=== PATIENT | female | born 1960 | race African-American/Black ===

== ENCOUNTER 2016-03-06 14:15 | Emergency (ER) | payer OTHER ==
[2016-03-06 14:28] VITALS: BMI 30.8
[2016-03-06 15:23] VITALS: BP 141/100; PULSE 75; TEMP 98.8
[2016-03-06] MEDS ORDERED: KETOROLAC TROMETHAMINE 30 MG/1 ML VIAL IVPUSH ONE (15:32)
[2016-03-06] MEDS ORDERED: KETOROLAC TROMETHAMINE 30 MG/1 ML VIAL ONE (15:36)
--- NOTE | 2016-03-06 15:36 | PDOC ---
History of Present Illness - History of Present Illness Initial Comments: 03/06/16 15:36 The patient is a 56 year old female, with a significant past medical history of breast CA s/p right lumpectomy (2009, on Arimidex), hypertension, hyperlipidemia , SVT, who presents to the emergency department with dizziness and left flank pain for a few hours. She states she was cleaning her oven and developed a sudden onset of dizziness. She reports that when she stood up she continued to feel dizzy and had a sudden onset of left upper quadrant pain which radiates to her left upper flank. She denies shortness of breath, headache and dizziness. She denies fever, chills , nausea, vomit, diarrhea and constipation. She denies dysuria, frequency, urgency and hematuria. Past surgical history: partial hysterectomy, right mastectomy PCP - Dr. Aguayo Cylinder Loader: Dr. Calzada <Torri Riley - Last Filed: 03/06/16 17:23> <James Renteria - Last Filed: 03/06/16 18:56> - General Chief Complaint: Lightheaded Stated Complaint: DIZZLNESS Time Seen by Provider: 03/06/16 14:47 Past History <Torri Riley - Last Filed: 03/06/16 17:23> - Past Medical History Cancer: Yes (RT breast) HTN: Yes - Reproductive History Cervical CA: No Dysfunctional Uterine Bleeding: No Ectopic : No Endometrial CA: No Polycystic Ovaries: No Tubal Ligation: No - Immunization History Immunization Up to Date: Yes - Psycho/Social/Smoking Cessation Hx Anxiety: No Suicidal Ideation: No Smoking Status: Yes Smoking History: Former smoker Have you smoked in the past 12 months: No Number of Cigarettes Smoked Daily: 0 Cigars Per Day: 0 Information on smoking cessation initiated: No 'Breaking Loose' booklet given: 11/07/14 Hx Alcohol Use: No Drug/Substance Use Hx: No Substance Use Type: None, Marijuana Hx Substance Use Treatment: No <James Renteria - Last Filed: 03/06/16 18:56> - Past Medical History Allergies/Adverse Reactions: Allergies Allergy/AdvReac Type Severity Reaction Status Date / Time Sulfa (Sulfonamide Allergy Rash Verified 03/06/16 14:24 Antibiotics) Home Medications: Ambulatory Orders Anastrozole [Arimidex -] 1 mg PO DAILY 12/23/12 Calcium Carbonate/Vitamin D3 [Calcium 600 + Vit D 200 Tablet] 1 each PO DAILY Atorvastatin Ca [Lipitor] 20 mg PO HS 11/04/15 Verapamil HCl ER [Calan Sr] 180 mg PO HS 11/04/15 Losartan Potassium [Cozaar -] 50 mg PO HS 02/13/16 Metoprolol Succinate [Toprol XL -] 25 mg PO HS 02/13/16 Review of Systems - Review of Systems Able to Perform ROS?: Yes Comments:: 03/06/16 15:37 CONSTITUTIONAL: Absent: fever, chills, diaphoresis, generalized weakness, malaise, loss of appetite HEENT: Absent: rhinorrhea, nasal congestion, throat pain, throat swelling, difficulty swallowing, mouth swelling, ear pain, eye pain, visual Changes CARDIOVASCULAR: (+) chest tightness. Absent: syncope, palpitations, irregular heart rate, lightheadedness, peripheral edema RESPIRATORY: Absent: cough, shortness of breath, dyspnea with exertion, orthopnea, wheezing, stridor, hemoptysis GASTROINTESTINAL: (+) left upper quadrant pain. Absent: abdominal distension, nausea, vomiting, diarrhea, constipation, melena, hematochezia GENITOURINARY: (+) Left flank pain, Absent: dysuria, frequency, urgency, hesitancy, hematuria, genital pain MUSCULOSKELETAL: Absent: myalgia, arthralgia, joint swelling SKIN: Absent: rash, itching, pallor HEMATOLOGIC/IMMUNOLOGIC: Absent: easy bleeding, easy bruising, lymphadenopathy, frequent infections ENDOCRINE: Absent: unexplained weight gain, unexplained weight loss, heat intolerance, cold intolerance NEUROLOGIC: (+) dizziness, Absent: headache, focal weakness or paresthesias, unsteady gait, seizure, mental status changes, bladder or bowel incontinence PSYCHIATRIC: Absent: anxiety, depression, suicidal or homicidal ideation, hallucinations. <Torri Riley - Last Filed: 03/06/16 17:23> *Physical Exam - Vital Signs Last Vital Signs Temp Pulse Resp BP Pulse Ox 98.8 F 75 20 141/100 99 03/06/16 15:23 03/06/16 15:23 03/06/16 15:23 03/06/16 15:23 03/06/16 15:23 - Physical Exam Comments: 03/06/16 15:39 GENERAL: Well developed, well nourished. Awake and alert. No acute distress. HEENT: Normocephalic, atraumatic. PERRLA, EOMI. No conjunctival pallor. Sclera are non- icteric. Moist mucous membranes. Oropharynx is clear. NECK: Supple. Full ROM. No JVD. Carotid pulses 2+ and symmetric, without bruits. No thyromegaly. No lymphadenopathy. CARDIOVASCULAR: Regular rate and rhythm. No murmurs, rubs, or gallops. Distal pulses are 2+ and symmetric. PULMONARY: No evidence of respiratory distress. Lungs clear to auscultation bilaterally. No wheezing, rales or rhonchi. ABDOMINAL: (+) Mildly tender to the left upper flank. Soft. Non-distended. No rebound or guarding. No organomegaly. Normoactive bowel sounds. MUSCULOSKELETAL Normal range of motion at all joints. No bony deformities or tenderness. No CVA tenderness. EXTREMITIES: No cyanosis. No clubbing. No edema. No calf tenderness. SKIN: Warm and dry. Normal capillary refill. No rashes. No jaundice. NEUROLOGICAL: Alert, awake, appropriate. Cranial nerves 2-12 intact. Normoreflexic in the upper and lower extremities. Normal speech. Toes are down-going bilaterally. Gait is normal without ataxia. PSYCHIATRIC: Cooperative. Good eye contact. Appropriate mood and affect. <Torri Riley - Last Filed: 03/06/16 17:23> - Vital Signs Last Vital Signs Temp Pulse Resp BP Pulse Ox 98.8 F 75 20 141/100 99 03/06/16 15:23 03/06/16 15:23 03/06/16 15:23 03/06/16 15:23 03/06/16 15:23 <James Renteria - Last Filed: 03/06/16 18:56> ED Treatment Course - LABORATORY CBC & Chemistry Diagram: 03/06/16 15:35 03/06/16 15:35 <Torri Riley - Last Filed: 03/06/16 17:23> - LABORATORY CBC & Chemistry Diagram: 03/06/16 15:35 03/06/16 15:35 <James Renteria - Last Filed: 03/06/16 18:56> *DC/Admit/Observation/Transfer - Attestations Scribe Attestion: 03/06/16 15:40 Documentation prepared by Torri Riley, acting as medical records specialist for James Renteria MD, MD <Torri Riley - Last Filed: 03/06/16 17:23> - Discharge Dispostion Admit: No <James Renteria - Last Filed: 03/06/16 18:56> Diagnosis at time of Disposition: Gastritis, Atypical chest pain - Discharge Dispostion Disposition: HOME Condition at time of disposition: Good - Referrals Referrals: Arturo Aguayo [Primary Care Provider] -
[2016-03-06 15:42] LABS: BASOPHIL 0.3 % (0-2.0); EOSINOPHIL 1.2 % (0-4.5); MEAN CELL VOLUME 87.6 fl (80-96); MEAN PLT VOLUME 9.3 fl (7.5-11.1); NEUTROPHILS 59.8 % (42.8-82.8); PLATELET COUNT 273 K/MM3 (134-434); RDW 15.8 % (11.6-15.6); WHITE BLOOD COUNT 8.3 K/mm3 (4.0-10.0)
[2016-03-06 15:49] LABS: URINE APPEARANCE CLEAR; URINE BILIRUBIN NEGATIVE (NEGATIVE); URINE BLOOD NEGATIVE (NEGATIVE); URINE COLOR STRAW; URINE GLUCOSE (UA) NEGATIVE (NEGATIVE); URINE KETONE NEGATIVE (NEGATIVE); URINE LEUK ESTERASE NEGATIVE (NEGATIVE); URINE NITRITE NEGATIVE (NEGATIVE); URINE PROTEIN NEGATIVE (NEGATIVE); URINE UROBILINOGEN NEGATIVE E.U./dl (0.2-1.0)
[2016-03-06 16:01] LABS: ALK PHOS 85 U/L (45-117); ANION GAP 5 (8-16); BILIRUBIN,TOTAL 0.6 mg/dL (0.2-1.0); CALCIUM 9.9 mg/dL (8.5-10.1); CO2 31 mmol/L (21-32); CREATININE 0.9 mg/dL (0.55-1.02); GLUCOSE,RANDOM 81 mg/dL (74-106); SGOT/AST 23 U/L (15-37); SGPT/ALT 31 U/L (12-78); TOT PROT 7.1 g/dl (6.4-8.2)
--- NOTE | 2016-03-06 16:04 | EKG ---
Test Reason : Blood Pressure : / mmHG Vent. Rate : 061 BPM Atrial Rate : 061 BPM P-R Int : 138 ms QRS Dur : 072 ms QT Int : 414 ms P-R-T Axes : 045 034 080 degrees QTc Int : 416 ms NORMAL SINUS RHYTHM NORMAL ECG WHEN COMPARED WITH ECG OF 13-FEB-2016 13:47, NO SIGNIFICANT CHANGE WAS FOUND Confirmed by CHRISTEL MCMULLEN MD ([id number]) on 03/06/2016 4:03:56 PM Referred By: Confirmed By:CHRISTEL MCMULLEN MD
[2016-03-06] MEDS ORDERED: MAG HYDROX/AL HYDROX/SIMETH 30 ML UNIT-DOSE CUP PO ONE (17:30)
[2016-03-06] MEDS ORDERED: DICYCLOMINE HCL 10 MG CAPSULE PO ONE (17:30)
[2016-03-06] MEDS ORDERED: LIDOCAINE VISCOUS 2% ORAL/TOP 20 ML UNIT-DOSE CUP MM ONE (17:30)
[2016-03-06] MEDS ORDERED: MAG HYDROX/AL HYDROX/SIMETH 30 ML UNIT-DOSE CUP ONE (17:40)
[2016-03-06] MEDS ORDERED: DICYCLOMINE HCL 10 MG CAPSULE ONE (17:40)
== END 2016-03-06 20:38 | disposition home or self-care (01) ==
LOC: JERFT 14:15 → JER 14:15
DX: K29.70 Gastritis, unspecified, without bleeding (principal); R07.89 Other chest pain; I10 Essential (primary) hypertension; E78.00 Pure hypercholesterolemia, unspecified; Z85.3 Personal history of malignant neoplasm of breast
CPT/HCPCS: 36415; 76700-TC; 80053; 81003; 85025; 93005; 93010; 99283-25

== ENCOUNTER 2016-06-22 20:21 | Emergency (ER) | payer OTHER ==
[2016-06-22 20:47] VITALS: BMI 31.3
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
[2016-06-22 21:17] LABS: URINE APPEARANCE CLEAR; URINE BILIRUBIN NEGATIVE (NEGATIVE); URINE COLOR YELLOW; URINE GLUCOSE (UA) NEGATIVE (NEGATIVE); URINE KETONE NEGATIVE (NEGATIVE); URINE LEUK ESTERASE NEGATIVE (NEGATIVE); URINE NITRITE NEGATIVE (NEGATIVE); URINE PROTEIN NEGATIVE (NEGATIVE); URINE UROBILINOGEN NEGATIVE E.U./dl (0.2-1.0)
[2016-06-22 21:18] LABS: URINE BLOOD 1+ (NEGATIVE)
[2016-06-22 21:21] LABS: URINE MUCUS RARE; URINE RBC 3 /hpf (0-3); URINE WBC 1 /hpf (3-5)
[2016-06-22] MEDS ORDERED: morphine CARPU-JECT 4 MG/1 ML DISP.SYRIN IVPUSH ONE (21:39)
[2016-06-22] MEDS ORDERED: ONDANSETRON 4 MG/2 ML VIAL IVPUSH ONE (21:39)
[2016-06-22] MEDS ORDERED: ONDANSETRON 4 MG/2 ML VIAL ONE (22:16)
[2016-06-22] MEDS ORDERED: morphine CARPU-JECT 4 MG/1 ML DISP.SYRIN ONE (22:16)
[2016-06-22 22:29] LABS: BASOPHIL 0.6 % (0-2.0); EOSINOPHIL 1.4 % (0-4.5); MCH 27.9 pg (25.7-33.7); MCHC 31.5 g/dl (32.0-36.0); MEAN CELL VOLUME 88.6 fl (80-96); MEAN PLT VOLUME 9.5 fl (7.5-11.1); NEUTROPHILS 57.9 % (42.8-82.8); PLATELET COUNT 276 K/MM3 (134-434); WHITE BLOOD COUNT 8.5 K/mm3 (4.0-10.0)
--- NOTE | 2016-06-22 22:41 | PDOC ---
[id number]/113 98 06/22/16 20:41 06/22/16 20:41 06/22/16 20:41 06/22/16 20:41 06/22/16 20:41 - Physical Exam Comments: 06/22/16 22:41 The patient was examined by [CUSTOMER SUPPORT ENGINEER Isamar] under my direct supervision. I personally evaluated the patient. I concur with the above findings and the plan of care. ED Treatment Course - LABORATORY CBC & Chemistry Diagram: 06/22/16 22:14 06/22/16 22:14 - ADDITIONAL ORDERS Additional order review: Laboratory Results 06/22/16 20:45 Urine Color Yellow Urine Appearance Clear Urine pH 5.0 D Urine Protein Negative Urine Glucose (UA) Negative Urine Ketones Negative Urine Blood 1+ H Urine Nitrite Negative Urine Bilirubin Negative Urine Urobilinogen Negative Ur Leukocyte Esterase Negative Urine RBC 3 Urine WBC 1 Ur Epithelial Cells Rare Urine Mucus Rare 06/22/16 22:14 RBC 4.48 MCV 88.6 MCHC 31.5 L RDW 16.0 H MPV 9.5 Neutrophils % 57.9 Lymphocytes % 34.6 Monocytes % 5.5 Eosinophils % 1.4 Basophils % 0.6 - Medications Given in the ED: ED Medications Discontinued Medications Generic Name Dose Route Start Last Admin Trade Name Freq PRN Reason Stop Dose Admin Morphine Sulfate 4 mg 06/22/16 21:39 06/22/16 22:16 Morphine Injection - IVPUSH 06/22/16 21:40 4 mg ONCE ONE Administration Ondansetron HCl 4 mg 06/22/16 21:39 06/22/16 22:16 Zofran Injection IVPUSH 06/22/16 21:40 4 mg ONCE ONE Administration *DC/Admit/Observation/Transfer Diagnosis at time of Disposition: Lung nodule < 6cm on CT, Ovarian cyst, left, Ventral hernia without obstruction or gangrene, Fecal impaction of colon - Discharge Dispostion Disposition: HOME - Referrals Referrals: Greyson Mayfield MD [Staff Physician] - Arturo Aguayo [Primary Care Provider] - Lynn Conley MD [Staff Physician] - - Patient Instructions Printed Discharge Instructions: DI for Ovarian Cyst, DI for Ventral Hernia, DI for Fecal Impaction Additional Instructions: As per hour in depth conversation, you will need to follow-up with: General surgeon (Dr. Bobby Mayfield) Land Measurer (Dr. Conley) Your own primary care physician You had a CAT scan of your abdomen and your pelvis with contrast by mouth and intravenously this evening. This is only a preliminary report as per our discussion. There is an incidental finding of a 4 mm right lower lobe nodule. 3.7 cm mildly complex left ovarian cyst Moderate stool in your colon Return back to the emergency department for severe/persistent or worsening symptoms.
[2016-06-22 23:02] LABS: ALBUMIN 3.8 g/dl (3.4-5.0); BILIRUBIN,TOTAL 0.3 mg/dL (0.2-1.0); CALCIUM 9.9 mg/dL (8.5-10.1); COCKROFT - GAULT 80.8095; CREATININE 1.1 mg/dL (0.55-1.02); TOT PROT 7.1 g/dl (6.4-8.2)
[2016-06-23] MEDS ORDERED: morphine CARPU-JECT 2 MG/1 ML DISP.SYRIN IVPUSH ONE (00:34)
[2016-06-23] MEDS ORDERED: morphine CARPU-JECT 4 MG/1 ML DISP.SYRIN ONE (00:58)
--- NOTE | 2016-06-23 03:11 | PDOC ---
*Physical Exam - Vital Signs Last Vital Signs Temp Pulse Resp BP Pulse Ox 98.2 F 83 20 162/113 98 06/22/16 20:41 06/22/16 20:41 06/22/16 20:41 06/22/16 20:41 06/22/16 20:41 ED Treatment Course - LABORATORY CBC & Chemistry Diagram: 06/22/16 22:14 06/22/16 22:14 - ADDITIONAL ORDERS Additional order review: Laboratory Results 06/22/16 06/22/16 22:14 20:45 Sodium 142 Potassium 4.1 Chloride 104 Carbon Dioxide 29 Anion Gap 9 BUN 19 H D Creatinine 1.1 H D Creat Clearance w eGFR 51.20 Random Glucose 110 H D Calcium 9.9 Total Bilirubin 0.3 D AST 32 D ALT 38 D Alkaline Phosphatase 86 Total Protein 7.1 Albumin 3.8 Lipase 92 Urine Color Yellow Urine Appearance Clear Urine pH 5.0 D Urine Protein Negative Urine Glucose (UA) Negative Urine Ketones Negative Urine Blood 1+ H Urine Nitrite Negative Urine Bilirubin Negative Urine Urobilinogen Negative Ur Leukocyte Esterase Negative Urine RBC 3 Urine WBC 1 Ur Epithelial Cells Rare Urine Mucus Rare 06/22/16 22:14 RBC 4.48 MCV 88.6 MCHC 31.5 L RDW 16.0 H MPV 9.5 Neutrophils % 57.9 Lymphocytes % 34.6 Monocytes % 5.5 Eosinophils % 1.4 Basophils % 0.6 - Medications Given in the ED: ED Medications Discontinued Medications Generic Name Dose Route Start Last Admin Trade Name Freq PRN Reason Stop Dose Admin Morphine Sulfate 4 mg 06/22/16 21:39 06/22/16 22:16 Morphine Injection - IVPUSH 06/22/16 21:40 4 mg ONCE ONE Administration Morphine Sulfate 4 mg 06/23/16 00:34 06/23/16 01:04 Morphine Injection - IVPUSH 06/23/16 00:35 4 mg ONCE ONE Administration Ondansetron HCl 4 mg 06/22/16 21:39 06/22/16 22:16 Zofran Injection IVPUSH 06/22/16 21:40 4 mg ONCE ONE Administration Progress Note - Progress Note Progress Note: 0005hrs: Pt is pain free/sleeping on the stretcher. GENERAL: Well developed, well nourished. Awake and alert. No acute distress. HEENT: Normocephalic, atraumatic. PERRLA, EOMI. No conjunctival pallor. Sclera are non- icteric. Moist mucous membranes. Oropharynx is clear. NECK: Supple. Full ROM. No JVD. Carotid pulses 2+ and symmetric, without bruits. No thyromegaly. No lymphadenopathy. CARDIOVASCULAR: Regular rate and rhythm. No murmurs, rubs, or gallops. Distal pulses are 2+ and symmetric. PULMONARY: No evidence of respiratory distress. Lungs clear to auscultation bilaterally. No wheezing, rales or rhonchi. ABDOMINAL: Right pelvic pain on deep palp Soft. Non-distended. No rebound or guarding. No organomegaly. Normoactive bowel sounds. MUSCULOSKELETAL Normal range of motion at all joints. No bony deformities or tenderness. No CVA tenderness. EXTREMITIES: No cyanosis. No clubbing. No edema. No calf tenderness. SKIN: Warm and dry. Normal capillary refill. No rashes. No jaundice. NEUROLOGICAL: Alert, awake, appropriate. Cranial nerves 2-12 intact. No deficits to light touch and temperature in face, upper extremities and lower extremities. No motor deficits in the in face, upper extremities and lower extremities. Normoreflexic in the upper and lower extremities. Normal speech. Toes are down- going bilaterally. Gait is normal without ataxia. PSYCHIATRIC: Cooperative. Good eye contact. Appropriate mood and affect. Pt refuses pelvic exam Interpreting the patient's CAT scan results, the patient insists that I tell her different. Patient insists that I tell her her CAT scan results are normal. I explained to the patient that I can only tell her exactly what the preliminary report says but the patient got upset saying that she doesn't want here anything but normal. *DC/Admit/Observation/Transfer Diagnosis at time of Disposition: Lung nodule < 6cm on CT, Ovarian cyst, left, Ventral hernia without obstruction or gangrene, Fecal impaction of colon - Discharge Dispostion Admit: No - Referrals Referrals: Arturo Aguayo [Primary Care Provider] - Greyson Mayfield MD [Staff Physician] - Lynn Conley MD [Staff Physician] - - Patient Instructions Printed Discharge Instructions: DI for Ovarian Cyst, DI for Fecal Impaction, DI for Ventral Hernia Additional Instructions: As per hour in depth conversation, you will need to follow-up with: General surgeon (Dr. Bobby Mayfield) Small Business Sales Representative (Dr. Conley) Your own primary care physician You had a CAT scan of your abdomen and your pelvis with contrast by mouth and intravenously this evening. This is only a preliminary report as per our discussion. There is an incidental finding of a 4 mm right lower lobe nodule. 3.7 cm mildly complex left ovarian cyst Moderate stool in your colon Return back to the emergency department for severe/persistent or worsening symptoms.
[2016-06-23 05:29] VITALS: BP 141/76; PULSE 61; TEMP 98
== END 2016-06-23 05:30 | disposition home or self-care (01) ==
LOC: JER 20:21
PROC: 3E033NZ Introduction of Analgesics, Hypnotics, Sedatives into Peripheral Vein, Percutaneous Approach (ICD-10-PCS; principal; 2016-06-22)
PROC: 3E033GC Introduction of Other Therapeutic Substance into Peripheral Vein, Percutaneous Approach (ICD-10-PCS; 2016-06-22)
PROC: 3E033NZ Introduction of Analgesics, Hypnotics, Sedatives into Peripheral Vein, Percutaneous Approach (ICD-10-PCS; 2016-06-22)
DX: N83.202 Unspecified ovarian cyst, left side (principal); K59.09 Other constipation; R91.1 Solitary pulmonary nodule; I10 Essential (primary) hypertension; Z85.3 Personal history of malignant neoplasm of breast
CPT/HCPCS: 36415; 74177-TC; 80053; 81003; 81015; 83690; 85025; 96374; 96375; 99282-25

== ENCOUNTER 2016-07-30 09:54 | Day surgery (SDC) | payer OTHER ==
[2016-07-27 10:39] VITALS: BMI 31.9
[2016-07-30] MEDS ORDERED: MIDAZOLAM HCL 2 MG/2 ML SINGLE DOSE VIAL ONE ×2 (12:20)
[2016-07-30] MEDS ORDERED: DESFLURANE GAS 240 ML BOTTLE IH ONE (12:45)
[2016-07-30] MEDS ORDERED: BUPIVACAINE HCL/PF 0.5% (5MG/ML) 10 ML VIAL ONE (12:47)
[2016-07-30] MEDS ORDERED: LIDOCAINE HCL 1%, 10 MG/ML (20ML VIAL) ONE (12:47)
[2016-07-30] MEDS ORDERED: BUPIVACAINE HCL/PF 0.5% (5MG/ML) 10 ML VIAL IJ ONE (12:48)
[2016-07-30] MEDS ORDERED: LIDOCAINE HCL 1%, 10 MG/ML (50 mL VIAL) IJ ONE (12:48)
[2016-07-30] MEDS ORDERED: NEOSTIGMINE METHYLSULFATE 0.5 MG/ML - 10 ML MDV ONE (13:29)
--- NOTE | 2016-07-30 13:34 | OP ---
Operative Note - Note: Operative Date: 07/30/16 Pre-Operative Diagnosis: Incarcerated ventral hernia Operation: Open repair and primary closure of incarcerated ventral hernia Post-Operative Diagnosis: Same as Pre-op Surgeon: Greyson Mayfield Medical Biller: Beltran Cisneros Anesthesiologist/[employer] TRUCK DRIVER: Delfino Lo Anesthesia: General Specimens Removed: hernia sac Estimated Blood Loss (mls): 10 Fluid Volume Replaced (mls): 900 Operative Report Dictated: Yes
--- NOTE | 2016-07-30 13:35 | HP ---
History & Physical Update - History History: No Change - Physical Physical: No Change - Assessment Assessment: No Change - Plan Plan: No Change (This is the first time I'm meeting the patient. I informed her that I will be assisting Dr. Mayfield for the case today. She is fine with it.)
[2016-07-30] MEDS ORDERED: ACETAMINOPHEN 1000 MG/100 ML VIAL (NON FORMULARY) IVPB ONE (13:36)
--- NOTE | 2016-07-30 13:36 | SURG ---
Surgery Woods Superintendent Note Woods Superintendent: Beltran Cisneros PA-C Date of Service: 07/30/16 Diagnosis: Incarcerated ventral hernia Procedure: Open repair incarcerated ventral hernia, primary closure. Defect 1.5 x 1.5 cm I was present for the entirety of the operative procedure. For further detail, please refer to operative report. Visit type - Case Type Case Type: Scheduled Admission - New patient This patient is new to me today: Yes Date on this admission: 07/30/16
[2016-07-30] MEDS ORDERED: ONDANSETRON 4 MG/2 ML VIAL IVPUSH PRN (14:01)
[2016-07-30] MEDS ORDERED: oxyCODONE HCL 5 MG TABLET PO PRN (14:01)
[2016-07-30] MEDS ORDERED: PROMETHAZINE HCL 25 MG/1 ML VIAL IVPUSH PRN (14:01)
[2016-07-30] MEDS ORDERED: LACTATED RINGERS SOLUTION 1,000 ML IV SCH (14:15)
[2016-07-30] MEDS ORDERED: ACETAMINOPHEN INJECTION 100 ML IVPB ONE (14:55)
[2016-07-30 15:58] VITALS: TEMP 98
[2016-07-30] MEDS ORDERED: ONDANSETRON 4 MG/2 ML VIAL ONE (17:27)
[2016-07-30 19:07] VITALS: BP 123/78; PULSE 80
--- NOTE | 2016-08-01 07:16 | OP ---
DATE OF OPERATION: 07/30/2016 PREOPERATIVE DIAGNOSIS: Incarcerated ventral hernia. POSTOPERATIVE DIAGNOSIS: Incarcerated ventral hernia. PROCEDURE: Repair of incarcerated ventral hernia. SURGEON: Greyson Mayfield MD REED PRESS FEEDER: Beltran Cisneros PA-C ANESTHESIA: General. OPERATIVE FINDINGS: There was an incarcerated ventral hernia several centimeters above the umbilicus. It contained incarcerated preperitoneal fat. The defect at the abdominal wall was approximately 1.5 cm in greatest dimension. The rest of the findings were unremarkable. DESCRIPTION OF PROCEDURE: The patient was placed on the operating table in supine position, and after the induction of general anesthesia, the patients abdomen was prepped with ChloraPrep and draped in sterile fashion. A time-out was taken, and a vertical incision made over the incarcerated hernia. This was taken down through skin and subcutaneous tissue until the hernia sac was identified. It was bluntly dissected from the surrounding tissue, and the defect in the abdominal wall identified. The hernia sac was opened and all incarcerated preperitoneal fat was excised with the sac and sent for pathological examination. The undersurface of the abdominal wall was cleared using blunt dissection, and then, the hernia repaired with multiple 0 Prolene horizontal mattress sutures. Then, 1% Xylocaine and 0.5% Marcaine local anesthesia was infiltrated into the operative field, and the wound irrigated with sterile saline. Hemostasis was secured with electrocautery, and then, the incision closed in layers with interrupted 2-0 Vicryl to close the deep layer over the hernia defect, interrupted 3-0 Vicryl for the deep dermis, and 4-0 Biosyn in a subcuticular continuous fashion to reapproximate the skin edges. Steri-Strips, fluffs, and dry sterile dressings were placed, and the procedure terminated at this point, and the patient roused from general anesthesia and transferred to the post-anesthesia care unit in stable condition, awake and alert. ESTIMATED BLOOD LOSS: Minimal. DRAINS: None. SPECIMENS: Hernia sac and incarcerated preperitoneal fat to Pathology. I, Greyson Mayfield, was physically present in the operating room from the time the patient was placed on the operating table until she was transferred to the post-anesthesia care unit in my accompaniment. MD HUGO Reed/[id number]
--- NOTE | 2016-08-01 14:37 | PATH ---
Surgical Pathology Report Patient Name: PETE MORA [facility]. Rec. #: [id number] /Age/Gender: 1960 (Age: 56) / F Account: [id number] Location: [facility] SURGICAL Taken: 07/30/2016 Received: 07/31/2016 Reported: 08/01/2016 Physicians: Greyson Mayfield MD Specimen(s) Received HERNIA SAC Clinical History Incarcerated ventral hernia Final Diagnosis HERNIA SAC, INCARCERATED VENTRAL HERNIA REPAIR: BENIGN, FOCALLY MESOTHELIUM LINED, FIBROMEMBRANOUS AND FIBROFATTY TISSUE, CONSISTENT WITH HERNIA SAC. Electronically Signed Reji Lou M.D. Gross Description Received in formalin labeled "hernia sac" is a 7.4 x 6.0 x 3.0 cm aggregate of hurley brandon fibromembranous tissue with attached yellow, lobulated adipose tissue, consistent with a hernia sac. Hooker Machine Tender sections are submitted in one cassette. /07/31/2016 saudi07/31/2016
== END 2016-07-30 19:09 | disposition home or self-care (01) ==
LOC: JASU-SURG 09:54
PROVIDERS: ATTEND Surgery
PROC: 0WQF0ZZ Repair Abdominal Wall, Open Approach (ICD-10-PCS; principal; 2016-07-30 13:00)
DX: K43.6 Other and unspecified ventral hernia with obstruction, without gangrene (principal)
CPT/HCPCS: 88302-TC; 94760

== ENCOUNTER → 2017-01-22 | Day surgery (SDC) | payer OTHER ==
--- NOTE | 2017-01-24 09:54 | PATH ---
Cytology Non-Gynecological Report Patient Name: PETE MORA [facility]. Rec. #: [id number] /Age/Gender: 1960 (Age: 56) / F Account: [id number] Location: RADIOLOGY Taken: 01/22/2017 Received: 01/22/2017 Reported: 01/24/2017 Physicians: Peggy Valentino Specimen(s) Received LEFT THYROID FNA Clinical History Left thyroid nodule 1.61 x 1.52 x 1.48 cm Final Diagnosis THYROID, LEFT, FINE NEEDLE ASPIRATION: SATISFACTORY FOR EVALUATION. BETHESDA II: SUGGESTIVE OF BENIGN FOLLICULAR NODULE. FEW FOLLICULAR CELLS WITH REACTIVE CHANGES IN A BACKGROUND OF MACROPHAGES, MICROCALCIFICATIONS AND COLLOID. RARE SKELETAL MUSCLE NOTED. Comment: Follicular component of the specimen is limited, but available material is suggestive of a benign process, if manufacturer representative. If the nodule has worrisome ultrasound imaging properties, suggest repeat FNA, as clinically warranted. Electronically Signed Lindsey Ortiz M.D. Gross Description Received are eight direct smears, four of which are air-dried and Diff-Quik stained, and four of which are alcohol fixed and Pap stained. Also received is 20 ml of bloody formalin from which one cellblock is prepared.
== END | disposition home or self-care (01) ==
LOC: JRADIR 08:15
PROVIDERS: ATTEND Legal Medicine
PROC: 0GBG3ZX Excision of Left Thyroid Gland Lobe, Percutaneous Approach, Diagnostic (ICD-10-PCS; principal; 2017-01-22)
PROC: BG44ZZZ Ultrasonography of Thyroid Gland (ICD-10-PCS; 2017-01-22)
DX: E04.1 Nontoxic single thyroid nodule (principal)
CPT/HCPCS: 60100; 76942; 88173; 88305-TC

== ENCOUNTER 2017-05-25 18:44 | Emergency (ER) | payer OTHER ==
[2017-05-25 18:57] VITALS: TEMP 98.1; BMI 35.2
--- NOTE | 2017-05-25 19:49 | PDOC ---
History of Present Illness <Debbie Mayo - Last Filed: 05/26/17 00:55> - General History Source: Patient - History of Present Illness Initial Comments: 05/25/17 19:50 57 year old female with a PMH of Lung CA (s/p resection) Breast CA (s/p lumpectomy), SVT, HTN, HLD presents to ED c/o acute onset of lightheadedness. Patient states she was sitting on a chair when she suddenly felt lightheaded. Patient denies any associated dyspnea, chest pain, nausea/vomiting. C/o two day history of R sided temporal headache with associated blurry vision that resolved yesterday. Notes last bowel movement was today prior to presentation. Last PO intake was yesterday. Notes recent consumption of Hemo Him supplement with the hope of increasing energy. Patient denies any fever/chills, nausea/vomiting, diarrhea/constipation, abdominal cramping, chest pain, shortness of breath, dysuria/hematuria. Allergy: Sulfa Social: denies current nicotine use (previous 1 ppd), denies alcohol, denies recreational drugs. <Gabriella Drake - Last Filed: 05/26/17 05:20> - General Chief Complaint: Lightheaded Stated Complaint: DIZZYNESS, ELEVATED BLOOD PRESSURE Time Seen by Provider: 05/25/17 19:22 Past History <Debbie Mayo - Last Filed: 05/26/17 00:55> - Past Medical History Cancer: Yes (RT breast) COPD: No HTN: Yes Thyroid Disease: No - Surgical History Abdominal Surgery: Yes - Reproductive History Cervical CA: No Dysfunctional Uterine Bleeding: No Ectopic : No Endometrial CA: No Polycystic Ovaries: No Tubal Ligation: No - Immunization History Immunization Up to Date: Yes - Suicide/Smoking/Psychosocial Hx Smoking Status: Yes Smoking History: Never smoked Have you smoked in the past 12 months: No Number of Cigarettes Smoked Daily: 0 If you are a former smoker, when did you quit?: SIX MONTHS AGO Cigars Per Day: 0 'Breaking Loose' booklet given: 07/30/16 Hx Alcohol Use: No Drug/Substance Use Hx: No Substance Use Type: None Hx Substance Use Treatment: No <Gabriella Drake - Last Filed: 05/26/17 05:20> - Past Medical History Allergies/Adverse Reactions: Allergies Allergy/AdvReac Type Severity Reaction Status Date / Time Sulfa (Sulfonamide Allergy Rash Verified 05/25/17 18:49 Antibiotics) Home Medications: Ambulatory Orders Anastrozole [Arimidex -] 1 mg PO DAILY 02/10/12 Atorvastatin Ca [Lipitor] 20 mg PO DAILY 11/04/15 Verapamil HCl ER [Calan Sr] 180 mg PO DAILY 11/04/15 Losartan Potassium [Cozaar -] 50 mg PO HS 02/13/16 Metoprolol Succinate [Toprol XL -] 25 mg PO HS 02/13/16 Citalopram Hydrobromide [Citalopram HBr] 20 mg PO DAILY 07/30/16 Oxycodone HCl/Acetaminophen [Percocet 5-325 mg Tablet] 1 tab PO Q4H #20 tablet MDD 6 07/30/16 Temazepam 7.5 mg PO PRN PRN 07/30/16 Review of Systems - Review of Systems Constitutional: No: Chills, Fever HEENTM: No: Recent change in vision Respiratory: No: Shortness of Breath, Wheezing Cardiac (ROS): Yes: Lightheadedness. No: Chest Pain, Palpitations, Syncope ABD/GI: No: Constipated, Diarrhea, Nausea, Vomiting : No: Burning, Dysuria <Gabriella Drake - Last Filed: 05/26/17 05:20> *Physical Exam - Vital Signs Last Vital Signs Temp Pulse Resp BP Pulse Ox 98.1 F 62 18 158/92 98 05/25/17 18:49 05/25/17 23:43 05/25/17 23:43 05/25/17 23:43 05/25/17 23:43 <Debbie Mayo - Last Filed: 05/26/17 00:55> - Vital Signs Last Vital Signs Temp Pulse Resp BP Pulse Ox 98.1 F 72 16 178/94 100 05/25/17 18:49 05/25/17 18:49 05/25/17 18:49 05/25/17 18:49 05/25/17 18:49 - Physical Exam Comments: 05/25/17 21:04 GENERAL: Awake, alert, and fully oriented, in no acute distress HEAD: No signs of trauma EYES: PERRLA, EOMI, sclera anicteric, conjunctiva clear ENT: Auricles normal inspection, hearing grossly normal, nares patent, oropharynx clear without exudates. Moist mucosa NECK: Nontender, no stepoffs, Normal ROM, supple, no lymphadenopathy, JVD, or masses LUNGS: Breath sounds equal, clear to auscultation bilaterally. No wheezes, and no crackles HEART: Regular rate and rhythm, normal S1 and S2, no murmurs, rubs or gallops ABDOMEN: Soft, nontender, normoactive bowel sounds. No guarding, no rebound. No masses EXTREMITIES: Normal range of motion, no edema. No clubbing or cyanosis. No cords, erythema, or tenderness NEUROLOGICAL: Cranial nerves II through XII intact. 5/5 strength and sensation in all extremities, Normal speech, normal cerebellar function SKIN: Warm, Dry, normal turgor, no rashes or lesions noted. <Gabriella Drake - Last Filed: 05/26/17 05:20> ED Treatment Course - LABORATORY CBC & Chemistry Diagram: 05/25/17 20:31 05/25/17 20:31 - ADDITIONAL ORDERS Additional order review: Laboratory Results 05/25/17 05/25/17 23:44 20:31 Sodium 139 Potassium 4.3 Chloride 103 Carbon Dioxide 30 Anion Gap 6 L BUN 14 Creatinine 0.9 Creat Clearance w eGFR > 60 Random Glucose 89 Calcium 9.7 Total Bilirubin 0.5 D AST 29 ALT 31 Alkaline Phosphatase 87 Creatine Kinase 461 H 527 H Creatine Kinase Index 1.0 1.0 CK-MB (CK-2) 5.063 H 5.594 H Troponin I < 0.02 < 0.02 B-Natriuretic Peptide 141.80 H Total Protein 7.3 Albumin 3.8 05/25/17 20:31 RBC 4.38 MCV 87.7 MCHC 32.8 RDW 16.2 H MPV 9.4 Neutrophils % 60.7 Lymphocytes % 30.1 Monocytes % 6.5 Eosinophils % 1.7 Basophils % 1.0 - Medications Given in the ED: ED Medications Discontinued Medications Generic Name Dose Route Start Last Admin Trade Name Freq PRN Reason Stop Dose Admin Aspirin 162 mg 05/25/17 23:55 05/26/17 00:01 Asa - PO 05/25/17 23:56 162 mg ONCE ONE Administration Metoprolol Succinate 25 mg 05/25/17 20:29 05/25/17 21:02 Toprol Xl - PO 05/25/17 20:30 25 mg ONCE ONE Administration Sodium Chloride 1,000 ml 05/25/17 20:07 05/25/17 20:30 Normal Saline - IV 05/25/17 20:08 1,000 ml ONCE ONE Administration <Debbie Mayo - Last Filed: 05/26/17 00:55> - LABORATORY CBC & Chemistry Diagram: 05/25/17 20:31 05/25/17 20:31 <Gabriella Drake - Last Filed: 05/26/17 05:20> Medical Decision Making - Medical Decision Making 05/25/17 20:52 57 year old female presents with acute onset of lightheadness- neurologically intact, NIHSS Stroke Scale 0. Hypertensive (SBP 170's) @ presentation. DDx includes TIA, r/o ACS, Giant Cell Arteritis, Electrolyte derangement. Will obtain CT head, ESR + basic labs + Troponin, administer IV NS. 05/25/17 21:04 As patient has not taken anti-hypertensive, will give OTD of Metoprolol. Troponin (-) x1. 05/25/17 21:06 ECG shows SR with occasional PVC's, not c/w previous ECG. Given patient's age, race, body habitus -- will obtain second Troponin to r/o acute coronary event. 05/25/17 22:45 Repeat BP 158/92 05/25/17 23:[address] negative for acute bleed/ischemia. 05/25/17 23:55 Repeat Troponin (-). At this time, patient observed for 3+ hours with complete resolution of symptoms. Low clinical suspicion for acute cardiac event. Will discharge home with return precautions and PMD follow-up. I discussed the physical exam findings, ancillary test results and final diagnoses with the patient. I answered all of the patient's questions. The patient was satisfied with the care received and felt comfortable with the discharge plan and treatment plan. The patient will return to the Emergency Department with any new, persistent or worsening symptoms. <Gabriella Drake - Last Filed: 05/26/17 05:20> *DC/Admit/Observation/Transfer - Discharge Dispostion Admit: No <Debbie Mayo - Last Filed: 05/26/17 00:55> <Gabriella Drake - Last Filed: 05/26/17 05:20> Diagnosis at time of Disposition: Atypical chest pain, Dizziness - Discharge Dispostion Disposition: HOME Condition at time of disposition: Improved - Referrals Referrals: Arturo Aguayo [Primary Care Provider] - - Patient Instructions Printed Discharge Instructions: Preventive Cardiology: Aspirin, Dizziness, Nonvertigo Additional Instructions: Please return to the Emergency Department for any new/worsening/concerning symptoms. Follow up with your primary care doctor in the next 48 hours. - Post Discharge Activity Forms/Work/School Notes: Back to Work
[2017-05-25] MEDS ORDERED: SODIUM CHLORIDE 0.9% 500 ML INFUS.BAG IV ONE (20:07)
--- NOTE | 2017-05-25 20:14 | PDOC ---
Attending Attestation - Resident Resident Name: Otf Drakeica - ED Attending Attestation I have performed the following: I have examined & evaluated the patient, The case was reviewed & discussed with the resident, I agree w/resident's findings & plan - HPI HPI: 05/25/17 23:43 Pt comes with lightheadedness; she reports that she had an episode of visual deficits in the recent past. Pt was exhausted today after spending the day with her two young grandchildren. Pt NSR with few PVCs. Pt has normal labs; slightly bumped CK; we will get a 2nd cardiac profile. CXR normal and head CT normal. - Physicial Exam PE: 05/26/17 00:45 Agree with resident exam - Medical Decision Making 05/26/17 00:46 Pt's 2nd cardiac enzyme is trending lower. She is stable for discharge home.
[2017-05-25] MEDS ORDERED: metoPROLOL SUCCINATE 25 MG TAB.SR.24H (FP) PO ONE (20:29)
[2017-05-25 20:39] LABS: EOS % 1.7 % (0-4.5); HEMATOCRIT 38.5 % (32.4-45.2); HEMOGLOBIN 12.6 GM/dL (10.7-15.3); LYMPH % 30.1 % (8-40); MCH 28.7 pg (25.7-33.7); MCHC 32.8 g/dl (32.0-36.0); MEAN CELL VOLUME 87.7 fl (80-96); MEAN PLT VOLUME 9.4 fl (7.5-11.1); MONO % 6.5 % (3.8-10.2); NEUT % 60.7 % (42.8-82.8); PLATELET COUNT 256 K/MM3 (134-434); RBC 4.38 M/mm3 (3.60-5.2); RDW 16.2 % (11.6-15.6); WHITE BLOOD COUNT 6.8 K/mm3 (4.0-10.0)
[2017-05-25 21:05] LABS: ALBUMIN 3.8 g/dl (3.4-5.0); ANION GAP 6 (8-16); BILIRUBIN,TOTAL 0.5 mg/dL (0.2-1.0); BLOOD UREA NITROGEN 14 mg/dL (7-18); CALCIUM 9.7 mg/dL (8.5-10.1); CHLORIDE 103 mmol/L (98-107); CO2 30 mmol/L (21-32); CREATININE 0.9 mg/dL (0.55-1.02); GLUCOSE,RANDOM 89 mg/dL (74-106); POTASSIUM 4.3 mmol/L (3.5-5.1); SGOT/AST 29 U/L (15-37); SGPT/ALT 31 U/L (12-78); SODIUM 139 mmol/L (136-145); TOT PROT 7.3 g/dl (6.4-8.2)
--- NOTE | 2017-05-25 21:05 | PDOC ---
NIH Stroke Scale - Initial Evaluation Level of consciousness: Alert Ask patient the month and their age: Answers both correctly Ask patient to open & close eyes; make fist and let go: Obeys both correctly Best gaze (horizontal eye movement): Normal Visual field testing: No visual field loss Facial paresis (Show teeth/raise eyebrows/close eyes tight): Normal symmetrical movement Motor Function: Left Arm: Normal Motor Function: Right Arm: Normal (extends arm 90 (or 45) degrees for 10 seconds without drift Motor Function: Left Leg: Normal (extends leg 30 degrees for 5 seconds without drift) Motor Function: Right Leg: Normal (extends leg 30 degrees for 5 seconds without drift) Limb Ataxia: No ataxia Sensory(Use pinprick test arms,legs,trunk,face/side to side): Normal Best language (Describe picture, name items, read sentences): No Aphasia Dysarthria (read several words): Normal articulation Extinction and Inattention: No abnormality - Total Score NIH Stroke Scale Score: 0
[2017-05-25 21:10] LABS: ALK PHOS 87 U/L (45-117)
[2017-05-25 23:44] VITALS: BP 158/92; PULSE 62
[2017-05-25] MEDS ORDERED: ASPIRIN 81 MG CHEWABLE TABLETS PO ONE (23:55)
[2017-05-25] MEDS ORDERED: ASPIRIN 81 MG CHEWABLE TABLETS ONE (23:59)
--- NOTE | 2017-05-26 09:01 | EKG ---
Test Reason : Blood Pressure : / mmHG Vent. Rate : 061 BPM Atrial Rate : 061 BPM P-R Int : 128 ms QRS Dur : 080 ms QT Int : 440 ms P-R-T Axes : -14 037 081 degrees QTc Int : 442 ms SINUS RHYTHM WITH OCCASIONAL PREMATURE VENTRICULAR COMPLEXES OTHERWISE NORMAL ECG WHEN COMPARED WITH ECG OF 06-MAR-2016 15:21, PREMATURE VENTRICULAR COMPLEXES ARE NOW PRESENT Confirmed by DEANGELO RAINES, ESTEFANI ([id number]) on 05/26/2017 9:01:13 AM Referred By: Confirmed By:ESTEFANI BRIGHT MD
== END 2017-05-26 01:28 | disposition home or self-care (01) ==
LOC: JER 18:44
DX: R07.89 Other chest pain (principal); R42 Dizziness and giddiness; Z85.3 Personal history of malignant neoplasm of breast; Z85.118 Personal history of other malignant neoplasm of bronchus and lung
CPT/HCPCS: 36415; 70450-TC; 71046-TC-FY; 80053; 82550; 82553; 83880; 84484; 85025; 85651; 93005; 93010; 99284-25

== ENCOUNTER 2017-11-20 10:31 | Emergency (ER) | payer OTHER ==
[2017-11-20 10:38] VITALS: BP 144/90; PULSE 84; TEMP 98.6; BMI 31.9
[2017-11-20 10:55] LABS: URINE APPEARANCE CLEAR; URINE BILIRUBIN NEGATIVE (<2.0 mg/dL); URINE COLOR YELLOW; URINE GLUCOSE (UA) NEGATIVE (NEGATIVE); URINE KETONE NEGATIVE (NEGATIVE); URINE LEUK ESTERASE NEGATIVE (NEGATIVE); URINE NITRITE NEGATIVE (NEGATIVE); URINE PROTEIN NEGATIVE (NEGATIVE); URINE UROBILINOGEN NEGATIVE mg/dL (0.2-1.0)
--- NOTE | 2017-11-20 11:33 | PDOC ---
History of Present Illness - General Chief Complaint: Urinary Problem Stated Complaint: URINARY PROBLEM, WANTS TO R/O UTI Time Seen by Provider: 11/20/17 11:17 History Source: Patient Exam Limitations: No Limitations - History of Present Illness Travel History: No Initial Comments: 11/20/17 patient came to emergency department with complaints of urinary frequency. Denies pain or burning when she goes however feels the need to avoid is much more frequent than previous. States has pressure, and feels that the urine is foul smelling and concentrated. Denies vaginal discharge or drainage, denies any changes with bowel. Denies fever, nausea or vomiting. Does not suffer from urinary tract infections in the past. Has not been sexually active for many months Timing/Duration: reports: constant, getting worse Quality: reports: mild, cramping, fullness Abdominal Pain Onset Location: reports: suprapubic Pain Radiation: reports: no radiation Activities at Onset: reports: none Alleviating Factors: improves with: None Past History - Travel Traveled outside of the country in the last 30 days: No Close contact w/someone who was outside of country & ill: No - Past Medical History Allergies/Adverse Reactions: Allergies Allergy/AdvReac Type Severity Reaction Status Date / Time Sulfa (Sulfonamide Allergy Rash Verified 11/20/17 10:53 Antibiotics) Home Medications: Ambulatory Orders Anastrozole [Arimidex -] 1 mg PO DAILY 02/10/12 Atorvastatin Ca [Lipitor] 20 mg PO DAILY 11/04/15 Verapamil HCl ER [Calan Sr] 180 mg PO DAILY 11/04/15 Losartan Potassium [Cozaar -] 50 mg PO HS 02/13/16 Metoprolol Succinate [Toprol XL -] 25 mg PO HS 02/13/16 Citalopram Hydrobromide [Citalopram HBr] 20 mg PO DAILY 07/30/16 Temazepam 7.5 mg PO PRN PRN 07/30/16 Phenazopyridine HCl [Pyridium] 200 mg PO Q8H #10 tablet 11/20/17 Cancer: Yes (RT breast, lung) COPD: No HTN: Yes Thyroid Disease: No - Surgical History Abdominal Surgery: Yes - Reproductive History Cervical CA: No Dysfunctional Uterine Bleeding: No Ectopic : No Endometrial CA: No Polycystic Ovaries: No Tubal Ligation: No - Immunization History Immunization Up to Date: Yes - Suicide/Smoking/Psychosocial Hx Smoking Status: Yes Smoking History: Never smoked Have you smoked in the past 12 months: No Number of Cigarettes Smoked Daily: 0 If you are a former smoker, when did you quit?: SIX MONTHS AGO Cigars Per Day: 0 Information on smoking cessation initiated: No 'Breaking Loose' booklet given: 07/30/16 Hx Alcohol Use: No Drug/Substance Use Hx: No Substance Use Type: None Hx Substance Use Treatment: No Review of Systems - Review of Systems Able to Perform ROS?: Yes Is the patient limited Surinamese proficient: Yes Constitutional: Yes: Symptoms Reported, See HPI, Malaise. No: Fever HEENTM: No: Symptoms Reported Respiratory: No: Symptoms reported ABD/GI: Yes: Symptoms Reported, See HPI, Abdominal cramping. No: Diarrhea, Nausea, Vomiting : Yes: Symptoms Reported, See HPI, Frequency, Urgency Musculoskeletal: Yes: Symptoms Reported *Physical Exam - Vital Signs Last Vital Signs Temp Pulse Resp BP Pulse Ox 98.6 F 84 17 144/90 97 11/20/17 10:34 11/20/17 10:34 11/20/17 10:34 11/20/17 10:34 11/20/17 10:34 - Physical Exam General Appearance: Yes: Nourished, Appropriately Dressed. No: Apparent Distress HEENT: positive: BAHMAN, Normal ENT Inspection, Normal Voice, TMs Normal, Pharynx Normal Neck: positive: Supple. negative: Tender Respiratory/Chest: positive: Lungs Clear, Normal Breath Sounds Gastrointestinal/Abdominal: positive: Normal Bowel Sounds, Soft. 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 However patient has clinical symptoms of a urinary tract infection therefore will send culture, and have patient call tomorrow to receive preliminary results and if antibiotics are indicated will call prescription into pharmacy. Patient understands plan and accepts will use Pyridium for frequency and mild dysuria. *DC/Admit/Observation/Transfer Diagnosis at time of Disposition: Increased urinary frequency - Discharge Dispostion Disposition: HOME Condition at time of disposition: Stable Decision to Admit order: No - Prescriptions Prescriptions: Phenazopyridine HCl [Pyridium] 200 mg PO Q8H #10 tablet - Referrals Referrals: Arturo Aguayo [Primary Care Provider] - - Patient Instructions Printed Discharge Instructions: DI for Dysuria -- Adult Additional Instructions: Rest, drink lots of fluids: Teas, water, soups Avoid contact with others until fevers and symptoms resolved Lots of handwashing and good hygiene Continue [id number] medications for symptomatic relief Tylenol or Motrin for fever and pain May use Pyridium, 1 tablet every 8 hours to relieve pain and burning of urine, remembering well-made urine bright orange Call Catrina tomorrow for evaluation of preliminary culture results, if show infection an antibiotic will be transmitted to your pharmacy. Followup with private physician in one week for repeat urinalysis/reevaluation Return to emergency department for worsened symptoms, fevers, dehydration - Post Discharge Activity
== END 2017-11-20 11:43 | disposition home or self-care (01) ==
LOC: JERFT 10:31
DX: R35.0 Frequency of micturition (principal); I10 Essential (primary) hypertension; Z85.3 Personal history of malignant neoplasm of breast; Z85.118 Personal history of other malignant neoplasm of bronchus and lung
CPT/HCPCS: 81003; 87086; 99281-25

== ENCOUNTER 2017-11-28 20:19 | Emergency (ER) | payer OTHER ==
[2017-11-28 20:46] VITALS: BP 177/88; PULSE 88; TEMP 98.9; BMI 33.2
[2017-11-28] MEDS ORDERED: IBUPROFEN 600 MG TABLET (FP) PO ONE ×2 (22:29→22:35)
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
== END 2017-11-28 22:59 | disposition home or self-care (01) ==
LOC: JERFT 20:19
DX: M25.511 Pain in right shoulder (principal); M79.672 Pain in left foot; Y04.2XXA Assault by strike against or bumped into by another person, initial encounter; Y93.89 Activity, other specified; Y92.038 Other place in apartment as the place of occurrence of the external cause; Y99.8 Other external cause status; Y07.499 Other family member, perpetrator of maltreatment and neglect; E78.00 Pure hypercholesterolemia, unspecified; Z85.3 Personal history of malignant neoplasm of breast; Z85.118 Personal history of other malignant neoplasm of bronchus and lung
CPT/HCPCS: 73030-TC-RT-FY; 73630-TC-LT; 99281-25

== ENCOUNTER 2018-03-03 14:12 | Emergency (ER) | payer OTHER ==
[2018-03-03 14:34] VITALS: BP 150/81; PULSE 76; TEMP 98; BMI 35.5
--- NOTE | 2018-03-03 14:34 | PDOC ---
Rapid Medical Evaluation Chief Complaint: Pain, Acute Time Seen by Provider: 03/03/18 14:31 Medical Evaluation: Allergies Allergy/AdvReac Type Severity Reaction Status Date / Time Sulfa (Sulfonamide Allergy Rash Verified 03/03/18 14:31 Antibiotics) 03/03/18 14:31 I have performed a brief in-person evaluation of this patient. The patient presents with a chief complaint of:RIGHT Knee pain Pertinent physical exam findings: swellign and pain to right knee I have ordered the following: Knee Xray The patient will proceed to the ED for further evaluation. Discharge Disposition - Referrals Referrals: Arturo Aguayo [Primary Care Provider] - - Patient Instructions - Post Discharge Activity
--- NOTE | 2018-03-03 15:40 | PDOC ---
History of Present Illness - General Chief Complaint: Pain, Acute Stated Complaint: Edema Time Seen by Provider: 03/03/18 14:31 - History of Present Illness Initial Comments: 03/03/18 [id number] female with a past medical history significant for lung cancer presents for evaluation of right knee pain after fall yesterday. She did not hit her head. Complains of right knee pain after slipping in the shower she describes a twisting-type injury. Past History - Past Medical History Allergies/Adverse Reactions: Allergies Allergy/AdvReac Type Severity Reaction Status Date / Time Sulfa (Sulfonamide Allergy Rash Verified 03/03/18 14:31 Antibiotics) Home Medications: Ambulatory Orders Anastrozole [Arimidex -] 1 mg PO DAILY 02/10/12 Atorvastatin Ca [Lipitor] 20 mg PO DAILY 11/04/15 Verapamil HCl ER [Calan Sr] 180 mg PO DAILY 11/04/15 Losartan Potassium [Cozaar -] 50 mg PO HS 02/13/16 Metoprolol Succinate [Toprol XL -] 25 mg PO HS 02/13/16 Citalopram Hydrobromide [Citalopram HBr] 20 mg PO DAILY 07/30/16 Temazepam 7.5 mg PO PRN PRN 07/30/16 Cancer: Yes (RT breast, lung) Cardiac Disorders: Yes COPD: No CHF: No HTN: Yes Hypercholesterolemia: Yes Thyroid Disease: No - Surgical History Abdominal Surgery: Yes - Reproductive History Cervical CA: No Dysfunctional Uterine Bleeding: No Ectopic : No Endometrial CA: No Polycystic Ovaries: No Tubal Ligation: No - Immunization History Immunization Up to Date: Yes - Suicide/Smoking/Psychosocial Hx Smoking Status: Yes Smoking History: Never smoked Have you smoked in the past 12 months: No Number of Cigarettes Smoked Daily: 0 If you are a former smoker, when did you quit?: SIX MONTHS AGO Cigars Per Day: 0 'Breaking Loose' booklet given: 07/30/16 Hx Alcohol Use: No Drug/Substance Use Hx: No Substance Use Type: None Hx Substance Use Treatment: No Review of Systems - Review of Systems Musculoskeletal: Yes: Joint Pain *Physical Exam - Vital Signs Last Vital Signs Temp Pulse Resp BP Pulse Ox 98 F 76 16 150/81 95 03/03/18 14:31 03/03/18 14:31 03/03/18 14:31 03/03/18 14:31 03/03/18 14:31 - Physical Exam Comments: 03/03/18 15:36 Right knee skin color and temperature are normal. There is a scant intra- articular effusion with a positive patella ballottement. Range of motion 0-90. She resists any passive motion beyond that. Thighs and calves are soft and nontender she has no gross sensorimotor deficits. She resists stability testing she is neurovascularly intact diffuse non specific tenderness Moderate Sedation - Procedure Monitoring Vital Signs: Procedure Monitoring Vital Signs Temperature 98 F 03/03/18 14:31 Pulse Rate 76 03/03/18 14:31 Respiratory Rate 16 03/03/18 14:31 Blood Pressure 150/81 03/03/18 14:31 O2 Sat by Pulse Oximetry (%) 95 03/03/18 14:31 Medical Decision Making - Medical Decision Making 03/03/18 15:37 No fracture trauma or destructive process on radiograph today. Is a bony island which appears to be an osteochondroma in the distal femur. *DC/Admit/Observation/Transfer Diagnosis at time of Disposition: Knee sprain - Discharge Dispostion Disposition: HOME Condition at time of disposition: Stable Decision to Admit order: No - Referrals Referrals: Arturo Aguayo [Primary Care Provider] - Conrad Farr DO [Staff Physician] - - Patient Instructions Printed Discharge Instructions: Knee Sprain, DI for Knee Sprain Additional Instructions: Return to the emergency room should symptoms worsen or go unresolved. Please follow-up with orthopedic surgery in 2-3 days for further evaluation and treatment options. He may weight-bear as tolerated with use of the knee immobilizer and crutches. He may remove the knee immobilizer at home for hygiene gentle range of motion sleep. Discontinue the crutches when he can walk comfortably without - Post Discharge Activity
[2018-03-03] MEDS ORDERED: IBUPROFEN 400 MG TABLET (FP) PO ONE ×3 (15:52→16:13)
== END 2018-03-03 16:19 | disposition home or self-care (01) ==
LOC: JERFT 14:12
DX: S83.8X1A Sprain of other specified parts of right knee, initial encounter (principal); M25.461 Effusion, right knee; W18.2XXA Fall in (into) shower or empty bathtub, initial encounter; Y93.E1 Activity, personal bathing and showering; Y92.031 Bathroom in apartment as the place of occurrence of the external cause; Y99.8 Other external cause status; I10 Essential (primary) hypertension; E78.00 Pure hypercholesterolemia, unspecified; Z85.3 Personal history of malignant neoplasm of breast; Z85.118 Personal history of other malignant neoplasm of bronchus and lung
CPT/HCPCS: 73562-TC-RT-FY; 99282-25

== ENCOUNTER 2018-04-29 19:45 | Emergency (ER) | payer OTHER ==
--- NOTE | 2018-04-29 20:12 | PDOC ---
Rapid Medical Evaluation Time Seen by Provider: 04/29/18 20:04 Medical Evaluation: Allergies Allergy/AdvReac Type Severity Reaction Status Date / Time Sulfa (Sulfonamide Allergy Rash Verified 03/03/18 14:31 Antibiotics) 04/29/18 20:04 I have performed a brief in-person evaluation of this patient. The patient presents with a chief complaint of: itchiness to back x4 days Pertinent physical exam findings: vesicular rash present to right upper back c/ w shingles I have ordered the following: benadryl The patient will proceed to the ED for further evaluation. Discharge Disposition - Diagnosis Rash - Referrals - Patient Instructions - Post Discharge Activity
[2018-04-29] MEDS ORDERED: diphenhydrAMINE HCL 25 MG CAPSULE (FP) PO ONE ×2 (20:13→21:12)
[2018-04-29 20:14] VITALS: BP 151/107; PULSE 89; TEMP 98.2; BMI 36.3
--- NOTE | 2018-04-29 21:18 | PDOC ---
History of Present Illness - General Chief Complaint: Rash Stated Complaint: ITCHY SKIN Time Seen by Provider: 04/29/18 20:04 - History of Present Illness Initial Comments: 04/29/18 21:13 58-year-old female presents for evaluation of rash on upper right side of the back 3 days. no Systemic symptoms. Past History - Past Medical History Allergies/Adverse Reactions: Allergies Allergy/AdvReac Type Severity Reaction Status Date / Time Sulfa (Sulfonamide Allergy Rash Verified 04/29/18 20:13 Antibiotics) Home Medications: Ambulatory Orders Anastrozole [Arimidex -] 1 mg PO DAILY 02/10/12 Atorvastatin Ca [Lipitor] 20 mg PO DAILY 11/04/15 Verapamil HCl ER [Calan Sr] 180 mg PO DAILY 11/04/15 Losartan Potassium [Cozaar -] 50 mg PO HS 02/13/16 Metoprolol Succinate [Toprol XL -] 25 mg PO HS 02/13/16 Citalopram Hydrobromide [Citalopram HBr] 20 mg PO DAILY 07/30/16 Temazepam 7.5 mg PO PRN PRN 07/30/16 Acyclovir [Zovirax -] 800 mg PO 5XD #35 tablet 04/29/18 Cancer: Yes (RT breast, lung) Cardiac Disorders: Yes COPD: No CHF: No HTN: Yes Hypercholesterolemia: Yes Thyroid Disease: No - Surgical History Abdominal Surgery: Yes - Reproductive History Cervical CA: No Dysfunctional Uterine Bleeding: No Ectopic : No Endometrial CA: No Polycystic Ovaries: No Tubal Ligation: No - Immunization History Immunization Up to Date: Yes - Suicide/Smoking/Psychosocial Hx Smoking Status: Yes Smoking History: Never smoked Have you smoked in the past 12 months: No Number of Cigarettes Smoked Daily: 0 If you are a former smoker, when did you quit?: SIX MONTHS AGO Cigars Per Day: 0 Information on smoking cessation initiated: No 'Breaking Loose' booklet given: 07/30/16 Hx Alcohol Use: No Drug/Substance Use Hx: No Substance Use Type: None Hx Substance Use Treatment: No Review of Systems - Review of Systems Constitutional: No: Fever Integumentary: Yes: Pruritus, Rash *Physical Exam - Vital Signs Last Vital Signs Temp Pulse Resp BP Pulse Ox 98.2 F 89 16 151/107 H 100 04/29/18 20:09 04/29/18 20:09 04/29/18 20:09 04/29/18 20:09 04/29/18 20:09 - Physical Exam Comments: 04/29/18 21:14 HEAD: NC/AT EYES: Conjuntiva clear MS: Full ROM in all joints without edema NEUROLOGIC: No gross sensory or motor deficits, NVID SKIN: Normal color and temperature there is a vesicular rash on the right upper mid back along the dermatome of about T5 Moderate Sedation - Procedure Monitoring Vital Signs: Procedure Monitoring Vital Signs Temperature 98.2 F 04/29/18 20:09 Pulse Rate 89 04/29/18 20:09 Respiratory Rate 16 04/29/18 20:09 Blood Pressure 151/107 H 04/29/18 20:09 O2 Sat by Pulse Oximetry (%) 100 04/29/18 20:09 Medical Decision Making - Medical Decision Making 04/29/18 21:14 First outbreak of shingles, will treat with 7 days of acyclovir. And recommend PCP follow-up. *DC/Admit/Observation/Transfer Diagnosis at time of Disposition: Rash, Shingles - Discharge Dispostion Disposition: HOME Condition at time of disposition: Stable Decision to Admit order: No - Prescriptions Prescriptions: Acyclovir [Zovirax -] 800 mg PO 5XD #35 tablet - Referrals Referrals: Arturo Aguayo [Primary Care Provider] - - Patient Instructions Printed Discharge Instructions: Shingles, DI for Shingles Additional Instructions: Return to the emergency room if symptoms persist. Please take the medication as directed and follow-up with your primary care physician. Tylenol and Motrin as directed for pain. Follow-up with primary care physician in one to 2 days for further evaluation and treatment. - Post Discharge Activity
== END 2018-04-29 22:01 | disposition home or self-care (01) ==
LOC: JERFT 19:45
DX: B02.9 Zoster without complications (principal); I10 Essential (primary) hypertension; E78.00 Pure hypercholesterolemia, unspecified; Z85.3 Personal history of malignant neoplasm of breast; Z85.118 Personal history of other malignant neoplasm of bronchus and lung
CPT/HCPCS: 99281-25

== ENCOUNTER 2018-07-19 21:00 | Emergency (ER) | payer OTHER | END 2018-07-19 22:53 | disposition home or self-care (01) | LOC: JERFT 21:00 ==

== ENCOUNTER → 2018-07-30 | Day surgery (SDC) | payer OTHER ==
--- NOTE | 2018-07-31 11:12 | PATH ---
Surgical Pathology Report Patient Name: PETE MORA [facility]. Rec. #: [id number] /Age/Gender: 1960 (Age: 58) / F Account: [id number] Location: [facility] Taken: 07/30/2018 Received: 07/30/2018 Reported: 07/31/2018 Physicians: Peggy Barajas MD Specimen(s) Received A: RIGHT BREAST SPECIMEN - WITH CALCIFICATIONS B: RIGHT BREAST SPECIMEN - WITHOUT CALCIFICATIONS Clinical History Nonpalpable lesion Mammographic findings: Microcalcification, suspicious Final Diagnosis A. BREAST, RIGHT, WITH CALCIFICATIONS, STEREOTACTIC CORE BIOPSY BENIGN BREAST PARENCHYMA WITH STROMAL FIBROSIS, CHRONIC INFLAMMATION, HISTIOCYTIC INFILTRATE, FAT NECROSIS, AND ASSOCIATED MICROCALCIFICATIONS. B. BREAST, RIGHT, WITHOUT CALCIFICATIONS, STEREOTACTIC CORE BIOPSY BENIGN BREAST PARENCHYMA WITH MILD CHRONIC INFLAMMATION, HISTIOCYTIC INFILTRATE, AND FAT NECROSIS. Electronically Signed Lindsey Ortiz M.D. Gross Description A. Received in formalin labeled "right breast with calcifications," is a 3.3 x 1.6 x 0.3 cm aggregate of multiple hurley-yellow, irregular to cylindrical portions of fibroadipose tissue. The formalin is filtered and the specimen is entirely submitted in 2 cassettes. B. Received in formalin labeled "right breast without calcifications," are 4 hurley-yellow, cylindrical portions of fibroadipose tissue ranging from 0.8-2.1 cm in length and averaging 0.3 cm in diameter. The specimens are submitted in toto in one cassette. Time to formalin fixation: 5 minutes Total formalin fixation time: Approximately 8 hours. /07/30/2018 saudi/07/30/2018
== END | disposition home or self-care (01) ==
LOC: FMAMMOTONE 08:22
PROVIDERS: ATTEND Surgery
PROC: 0HBT3ZX Excision of Right Breast, Percutaneous Approach, Diagnostic (ICD-10-PCS; principal; 2018-07-30)
DX: N60.31 Fibrosclerosis of right breast (principal); N64.1 Fat necrosis of breast; N64.89 Other specified disorders of breast; R92.1 Mammographic calcification found on diagnostic imaging of breast
CPT/HCPCS: 19081; 87899; 88305-TC; A4648

== ENCOUNTER 2018-08-16 15:38 | Emergency (ER) | payer OTHER ==
[2018-08-16 15:43] VITALS: TEMP 98.4; BMI 34.4
[2018-08-16 16:53] LABS: BASO % 0.6 % (0-2.0); EOS % 0.6 % (0-4.5); HEMATOCRIT 39.3 % (32.4-45.2); HEMOGLOBIN 12.5 GM/dL (10.7-15.3); LYMPH % 23.2 % (8-40); MCH 27.6 pg (25.7-33.7); MCHC 31.9 g/dl (32.0-36.0); MEAN CELL VOLUME 86.5 fl (80-96); MEAN PLT VOLUME 9.1 fl (7.5-11.1); MONO % 7.2 % (3.8-10.2); NEUT % 68.4 % (42.8-82.8); PLATELET COUNT 356 K/MM3 (134-434); RBC 4.54 M/mm3 (3.60-5.2); RDW 15.9 % (11.6-15.6); WHITE BLOOD COUNT 10.2 K/mm3 (4.0-10.0)
[2018-08-16 16:54] LABS: INR 0.96 (0.83-1.09); PROTHROMBIN TIME (PATIENT) 11.3 SEC (9.7-13.0)
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
[2018-08-16] MEDS ORDERED: SODIUM CHLORIDE 0.9% 1000 ML INFUS.BAG IV ONE (17:00)
[2018-08-16 17:05] LABS: URINE APPEARANCE CLOUDY; URINE BILIRUBIN NEGATIVE (NEGATIVE); URINE COLOR YELLOW; URINE GLUCOSE (UA) NEGATIVE (NEGATIVE); URINE KETONE TRACE (NEGATIVE); URINE LEUK ESTERASE NEGATIVE (NEGATIVE); URINE NITRITE NEGATIVE (NEGATIVE); URINE PROTEIN TRACE (NEGATIVE)
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
[2018-08-16 17:48] VITALS: BP 115/87; PULSE 80
[2018-08-16 18:07] LABS: ALBUMIN 3.7 g/dl (3.4-5.0); ALK PHOS 115 U/L (45-117); ANION GAP 6 MMOL/L (8-16); BILIRUBIN,TOTAL 0.5 mg/dL (0.2-1); BLOOD UREA NITROGEN 18.1 mg/dL (7-18); CALCIUM 9.4 mg/dL (8.5-10.1); CHLORIDE 108 mmol/L (98-107); CO2 28 mmol/L (21-32); GLUCOSE,RANDOM 111 mg/dL (74-106); POTASSIUM 3.5 mmol/L (3.5-5.1); SGOT/AST 19 U/L (15-37); SGPT/ALT 34 U/L (13-61); SODIUM 142 mmol/L (136-145)
--- NOTE | 2018-08-18 00:24 | EKG ---
Test Reason : Blood Pressure : / mmHG Vent. Rate : 077 BPM Atrial Rate : 077 BPM P-R Int : 132 ms QRS Dur : 078 ms QT Int : 398 ms P-R-T Axes : 069 048 089 degrees QTc Int : 450 ms NORMAL SINUS RHYTHM NORMAL ECG WHEN COMPARED WITH ECG OF 08-OCT-2017 12:21, NO SIGNIFICANT CHANGE WAS FOUND Confirmed by MD York Edward ([id number]) on 08/18/2018 12:23:53 AM Referred By: Confirmed By:Meño York MD
== END 2018-08-16 19:05 | disposition home or self-care (01) ==
LOC: JER 15:38
PROC: 3E0337Z Introduction of Electrolytic and Water Balance Substance into Peripheral Vein, Percutaneous Approach (ICD-10-PCS; principal; 2018-08-16)
DX: R42 Dizziness and giddiness (principal); I10 Essential (primary) hypertension; E78.00 Pure hypercholesterolemia, unspecified; Z85.3 Personal history of malignant neoplasm of breast; Z85.118 Personal history of other malignant neoplasm of bronchus and lung
CPT/HCPCS: 36415; 71045-TC-FY; 80053; 81003; 82550; 82553; 84484; 85025; 85610; 86850; 86900; 86901; 87086; 93005; 93010; 99285-25; J7030

== ENCOUNTER 2018-10-29 14:23 | Emergency (ER) | payer OTHER | END 2018-10-29 15:35 | disposition home or self-care (01) | LOC: JERFT 14:23 ==

== ENCOUNTER 2018-12-04 14:55 | Emergency (ER) | payer OTHER ==
--- NOTE | 2018-12-04 15:30 | PDOC ---
Rapid Medical Evaluation Time Seen by Provider: 12/04/18 15:26 Medical Evaluation: Allergies Allergy/AdvReac Type Severity Reaction Status Date / Time Sulfa (Sulfonamide Allergy Rash Verified 10/29/18 14:40 Antibiotics) 12/04/18 15:27 I have performed a brief in-person evaluation of this patient. The patient presents with a chief complaint of: L leg pain (chronic leg pain), seeing Dr. Avalos on Sat, here multiple times for same Rx Written Rx Dispensed Drug Quantity Days Supply Prescriber Name 11/13/2018 11/14/2018 zolpidem tartrate 10 mg tablet 30 30 Nabil Govea MD 10/06/2018 10/29/2018 oxycodone-acetaminophen 10-325 mg tab 90 30 Taran Dooley M 07/03/2018 09/26/2018 zolpidem tartrate 10 mg tablet 30 30 Nabil Govea MD 09/17/2018 09/17/2018 oxycodone-acetaminophen 10-325 mg tab 90 30 Taran Dooley M 07/03/2018 08/30/2018 zolpidem tartrate 10 mg tablet 30 30 Nabil Govea MD 07/03/2018 08/01/2018 zolpidem tartrate 10 mg tablet 30 30 Nabil Govea MD 07/29/2018 08/01/2018 diazepam 5 mg tablet 2 2 Natasha Ying MD Pertinent physical exam findings: limp to L leg I have ordered the following: nothing The patient will proceed to the ED for further evaluation. Discharge Disposition - Diagnosis Chronic leg pain - Referrals - Patient Instructions - Post Discharge Activity
[2018-12-04 15:32] VITALS: BP 130/77; PULSE 84; TEMP 98.3; BMI 36.1
[2018-12-04] MEDS ORDERED: KETOROLAC TROMETHAMINE 60 MG/2 ML VIAL IM ONE (16:51)
[2018-12-04] MEDS ORDERED: KETOROLAC TROMETHAMINE 60 MG/2 ML VIAL ONE (16:52)
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
== END 2018-12-04 16:56 | disposition home or self-care (01) ==
LOC: JERFT 14:55
PROC: 3E0233Z Introduction of Anti-inflammatory into Muscle, Percutaneous Approach (ICD-10-PCS; principal; 2018-12-04)
DX: M25.462 Effusion, left knee (principal); M25.562 Pain in left knee; I10 Essential (primary) hypertension; E78.00 Pure hypercholesterolemia, unspecified; Z85.3 Personal history of malignant neoplasm of breast; Z85.118 Personal history of other malignant neoplasm of bronchus and lung; Z88.5 Allergy status to narcotic agent
CPT/HCPCS: 73562-TC-LT-FY; 99282-25

== ENCOUNTER 2018-12-19 13:35 | Emergency (ER) | payer OTHER ==
[2018-12-19 13:56] VITALS: BP 116/85; PULSE 88; TEMP 98.8; BMI 32.3
[2018-12-19] MEDS ORDERED: KETOROLAC TROMETHAMINE 60 MG/2 ML VIAL IM ONE (14:15)
[2018-12-19] MEDS ORDERED: KETOROLAC TROMETHAMINE 60 MG/2 ML VIAL ONE (14:17)
--- NOTE | 2018-12-19 15:06 | PDOC ---
History of Present Illness - General Chief Complaint: Pain Stated Complaint: FALL/ Time Seen by Provider: 12/19/18 13:55 History Source: Patient - History of Present Illness Occurred: reports: this morning Lower Extremity Pain Location: left: knee Past History - Past Medical History Allergies/Adverse Reactions: Allergies Allergy/AdvReac Type Severity Reaction Status Date / Time Sulfa (Sulfonamide Allergy Rash Verified 12/19/18 13:52 Antibiotics) Home Medications: Ambulatory Orders Anastrozole [Arimidex -] 1 mg PO DAILY 02/10/12 Atorvastatin Ca [Lipitor] 20 mg PO DAILY 11/04/15 Verapamil HCl ER [Calan Sr] 180 mg PO DAILY 11/04/15 Losartan Potassium [Cozaar -] 50 mg PO HS 02/13/16 Metoprolol Succinate [Toprol XL -] 25 mg PO HS 02/13/16 Citalopram Hydrobromide [Citalopram HBr] 20 mg PO DAILY 07/30/16 Temazepam 7.5 mg PO PRN PRN 07/30/16 Acyclovir [Zovirax -] 800 mg PO 5XD #35 tablet 04/29/18 Diclofenac Sodium 75 mg PO BID #20 tablet. 10/29/18 Diclofenac Sodium [Voltaren] 100 gm TP BID #1 tube 12/04/18 Naproxen 500 mg PO BID #20 tablet 12/19/18 Cancer: Yes (RT breast, lung) Cardiac Disorders: Yes COPD: No CHF: No HTN: Yes Hypercholesterolemia: Yes Thyroid Disease: No - Surgical History Abdominal Surgery: Yes - Reproductive History Cervical CA: No Dysfunctional Uterine Bleeding: No Ectopic : No Endometrial CA: No Polycystic Ovaries: No Tubal Ligation: No - Immunization History Immunization Up to Date: Yes - Psycho Social/Smoking Cessation Hx Smoking Status: Yes Smoking History: Never smoked Have you smoked in the past 12 months: No Number of Cigarettes Smoked Daily: 0 If you are a former smoker, when did you quit?: SIX MONTHS AGO Cigars Per Day: 0 Information on smoking cessation initiated: No 'Breaking Loose' booklet given: 07/30/16 Hx Alcohol Use: No Drug/Substance Use Hx: No Substance Use Type: None Hx Substance Use Treatment: No Review of Systems - Review of Systems Musculoskeletal: Yes: Joint Pain. No: Back Pain, Joint Swelling, Neck Pain Neurological: No: Headache, Dizziness *Physical Exam - Vital Signs Last Vital Signs Temp Pulse Resp BP Pulse Ox 98.8 F 88 16 116/85 98 12/19/18 13:49 12/19/18 13:49 12/19/18 13:49 12/19/18 13:49 12/19/18 13:49 - Physical Exam General Appearance: Yes: Appropriately Dressed, Mild Distress HEENT: positive: Normal Voice Neck: positive: Supple Respiratory/Chest: negative: Respiratory Distress Gastrointestinal/Abdominal: positive: Soft. negative: Tender Extremity: positive: Tender, Swelling (minimal swelling to anterior L knee, w/ ttp to lateral aspect, FROMI, limping here) Integumentary: positive: Dry, Warm Neurologic: positive: Fully Oriented, Alert, Normal Mood/Affect ED Treatment Course - RADIOLOGY Radiology Studies Ordered: Category Date Time Status KNEE 2 POS-LEFT [RAD] Stat Radiology 12/19/18 14:16 Completed - Medications Given in the ED: ED Medications Discontinued Medications Generic Name Dose Route Start Last Admin Trade Name Freq PRN Reason Stop Dose Admin Ketorolac Tromethamine 60 mg 12/19/18 14:15 12/19/18 14:22 Toradol Injection - IM 12/19/18 14:16 60 mg ONCE ONE Administration Medical Decision Making - Medical Decision Making 12/19/18 15:18 58 yo M, h/o multiple comorbidities including chronic L knee pain w/ meniscal tear on MRI 09/05, scheduled for arthroscopic surgery with Dr. Avalos in 2 weeks, here w/ acute L knee pain s/p injury. Patient states while getting out of the shower this am, she slipped causing her legs "to go in different directions" per pt. Currently limping. Denies any other injuries and did not hit head per patient see exam Knee strain XR w/ small effusion (chronic), no fx Dose of troadol given here -dc w/ pain control, crutches -pt req new ortho referral as have arthroscopic surgery to L knee in 2 weeks w/ Dr Avalos but states unhappy with MD's care Discharge - Discharge Information Problems reviewed: Yes Clinical Impression/Diagnosis: Knee injury Qualifiers: Encounter type: initial encounter Laterality: left Qualified Code(s): S89.92XA - Unspecified injury of left lower leg, initial encounter Disposition: HOME - Additional Discharge Information Prescriptions: Naproxen 500 mg PO BID #20 tablet - Follow up/Referral Referrals: Arturo Aguayo [Primary Care Provider] - Conrad Farr DO [Staff Physician] - - Patient Discharge Instructions Additional Instructions: Your knee x-ray was negative for any fractures but did show a small amount of fluid which was seen on prior x-rays. Take medication as prescribed and follow-up with orthopedics - Post Discharge Activity
== END 2018-12-19 15:14 | disposition home or self-care (01) ==
LOC: JERFT 13:35
PROC: 3E0233Z Introduction of Anti-inflammatory into Muscle, Percutaneous Approach (ICD-10-PCS; principal; 2018-12-19)
DX: S89.92XA Unspecified injury of left lower leg, initial encounter (principal); X58.XXXA Exposure to other specified factors, initial encounter; Y93.89 Activity, other specified; Y92.89 Other specified places as the place of occurrence of the external cause; Z88.2 Allergy status to sulfonamides; Z87.891 Personal history of nicotine dependence; I10 Essential (primary) hypertension; Z85.3 Personal history of malignant neoplasm of breast; I51.9 Heart disease, unspecified; E78.00 Pure hypercholesterolemia, unspecified
CPT/HCPCS: 73560-TC-LT-FY; 96372; 99281-25

== ENCOUNTER 2019-01-07 09:18 | Day surgery (SDC) | payer OTHER ==
[2019-01-06 17:09] VITALS: BMI 36.1
--- NOTE | 2019-01-07 10:30 | HP ---
Satellite H - Chief Complaint Chief Complaint: left knee pain - Past Medical History Allergies/Adverse Reactions: Allergies Allergy/AdvReac Type Severity Reaction Status Date / Time Sulfa (Sulfonamide Allergy Rash Verified 01/06/19 16:41 Antibiotics) Cardiovascular: Yes: HTN, Other (paroxysmal atrial tachycardia) Heme/Onc: Yes: Cancer (right breast cancer), Other (s/p right mastectomy) - Current Medications Current Medications: Home Medications Medication Instructions Recorded Anastrozole [Arimidex -] 1 mg PO DAILY 02/10/12 Verapamil HCl ER [Calan Sr -] 180 mg PO DAILY 11/04/15 Losartan Potassium [Cozaar -] 50 mg PO HS 02/13/16 Naproxen 500 mg PO BID #20 tablet 12/19/18 Aspirin 81 mg PO DAILY 01/06/19 Ibuprofen 800 mg PO PRN PRN 01/06/19 Nebivolol HCl [Bystolic] 5 mg PO DAILY 01/06/19 Oxycodone HCl/Acetaminophen 1 tab PO Q6H #15 tablet MDD 4 01/07/19 [Percocet 5-325 mg Tablet] Satellite Physical Exam - Physical Examination Vital Signs: Vital Signs Period Temp Pulse Resp BP Sys/Pickard Pulse Ox Last 24 Hr 97.6 F-97.6 F 66-66 20-20 137-137/88-88 97 General Appearance: Well Nourished, Well Developed, Alert & Oriented x3 ENT: Clear Lung: Normal air movement Extremities: Other (left knee- + swelling, + ttp, dec rom ,+ mcmurrays, nvi, MRi + mmt) Neurological: Intact, Alert, Oriented Satellite Impression/Plan - Impression/Plan Impression: left knee internal derangement Operative Procedure: left knee arthroscopy Date to be Performed: 01/07/19
[2019-01-07] MEDS ORDERED: BUPIVACAINE HCL/PF 0.5% (5 MG/ML) 30 ML VIAL IJ ONE ×3 (10:36→11:15)
[2019-01-07] MEDS ORDERED: LIDOCAINE 1%-EPI 1:100,000 30 ML MDV IJ ONE (10:36)
[2019-01-07] MEDS ORDERED: PROPOFOL 20 ML ONE (11:02)
[2019-01-07] MEDS ORDERED: MIDAZOLAM HCL 2 MG/2 ML SINGLE DOSE VIAL ONE (11:02)
[2019-01-07] MEDS ORDERED: LIDOCAINE 1%/EPI 1:100000 (20 ML MULTI DOSE VIAL) IJ ONE ×2 (11:17)
[2019-01-07] MEDS ORDERED: KETOROLAC TROMETHAMINE 30 MG/1 ML VIAL ONE (11:27)
--- NOTE | 2019-01-07 11:50 | OP ---
Operative Note - Note: Operative Date: 01/07/19 ([facility]) Pre-Operative Diagnosis: left knee internal derangement Operation: left knee arthroscopy with PMM Post-Operative Diagnosis: Same as Pre-op Surgeon: Piyush Avalso Anesthesia: General, Local Specimens Removed: shavings Estimated Blood Loss (mls): 5
[2019-01-07] MEDS ORDERED: oxyCODONE HCL 5 MG TABLET PO PRN (12:30)
[2019-01-07] MEDS ORDERED: LACTATED RINGERS SOLUTION 1,000 ML IV SCH (12:30)
[2019-01-07] MEDS ORDERED: ONDANSETRON 4 MG/2 ML VIAL IVPUSH PRN (12:30)
[2019-01-07 16:28] VITALS: TEMP 97.4
[2019-01-07 16:40] VITALS: BP 139/84; PULSE 88
--- NOTE | 2019-01-07 17:12 | OP ---
DATE OF OPERATION: 01/07/2019 PREOPERATIVE DIAGNOSIS: Internal derangement of the left knee. POSTOPERATIVE DIAGNOSIS: Internal derangement of the left knee. PROCEDURE PERFORMED: Arthroscopy of the left knee with partial medial meniscectomy. SURGICAL ATTENDING: Piyush Avalos MD ANESTHESIA: General with LMA. CLOSURE: 4-0 nylon. COMPLICATIONS: None. CONDITION: To the recovery room in stable condition. DESCRIPTION OF PROCEDURE: The patient was taken to the operating room on January 07, 2019. General anesthesia with LMA was administered by the anesthesiologist. The left lower extremity was prepped and draped in the usual sterile fashion. Medial and lateral infrapatellar portal sites were infiltrated with 1% Xylocaine with epinephrine. Both portals were made with a 15 blade, followed by a blunt trocar. The knee was inflated with a cocktail of 10 mL of 1% Xylocaine, 10 mL of 0.5% Marcaine, 20 mL of arthroscopic saline. This was done through the scope trocar. After allowing the anesthetic to work in the knee, the procedure was performed. The pouch was visualized to be clean. The medial and lateral gutters were visualized to be clean. The undersurface of the patella was found to be intact. The trochlea had . With valgus stress on the knee, the medial compartment was entered. The medial meniscus was visualized, probed and found to have a complex tear of its posterior horn. This was debrided back to smooth stable meniscal tissue using a meniscal biter and arthroscopic shaver. The medial femoral condyle was and medial tibial plateau were visualized to be basically intact. At 90 degrees, the ACL was visualized, probed and found to be intact. In the figure-4 position, the lateral compartment was entered. The lateral meniscus was visualized and probed, and found to be intact. The lateral femoral condyle was run and found to be intact, as well as the lateral tibial plateau. The knee was irrigated with copious amounts of irrigation. The portals were closed using 4-0 nylon. Prior to closure, 20 mL of 0.5% Marcaine was infused through the outflow portal for postoperative analgesia. The patient was awakened from anesthesia and transferred to the recovery room in stable condition. No complications. Estimated blood loss was negligible. Peggy [id number]
--- NOTE | 2019-01-09 16:18 | PATH ---
Surgical Pathology Report Patient Name: PETE MORA [facility]. Rec. #: [id number] /Age/Gender: 1960 (Age: 58) / F Account: [id number] Location: [facility] SURGICAL Taken: 01/07/2019 Received: 01/07/2019 Reported: 01/09/2019 Physicians: Piyush Avalos M.D. Specimen(s) Received LEFT KNEE SHAVINGS Clinical History Internal derangement of left knee Final Diagnosis KNEE SHAVINGS, LEFT, ARTHROSCOPY: FRAGMENTS OF DENSE FIBROCONNECTIVE TISSUE, ADIPOSE TISSUE, AND FIBROSYNOVIAL TISSUE WITH PROMINENT LYMPHOPLASMACYTIC (CHRONIC) INFLAMMATORY INFILTRATE. Comment: Although these findings are non-specific, dense lymphoplasmacytic infiltrate involving synovium may be seen in association with rheumatoid arthritis. Correlation with clinical/radiologic and serologic findings is suggested Electronically Signed Lindsey Ortiz M.D. Gross Description Received in formalin, labeled "left knee shavings," is a 4.0 x 2.5 x 0.3 cm. aggregate of hurley-yellow soft tissue fragments. A retention representative portion is submitted in one cassette. DL/01/08/2019 saudi01/08/2019
== END 2019-01-07 15:50 | disposition home or self-care (01) ==
LOC: JASU-SURG 09:18
PROVIDERS: ATTEND Orthopaedic Surgery
PROC: 0SBD4ZZ Excision of Left Knee Joint, Percutaneous Endoscopic Approach (ICD-10-PCS; principal; 2019-01-07 11:00)
DX: S83.232A Complex tear of medial meniscus, current injury, left knee, initial encounter (principal); X58.XXXA Exposure to other specified factors, initial encounter; Y93.9 Activity, unspecified; Y92.9 Unspecified place or not applicable; Y99.9 Unspecified external cause status
CPT/HCPCS: 88304-TC; 94760

== ENCOUNTER 2020-08-09 11:05 | Emergency (ER) | payer OTHER ==
[2020-08-09 11:21] VITALS: BP 127/78; PULSE 72; TEMP 98.1; BMI 35.2
[2020-08-09] MEDS ORDERED: KETOROLAC TROMETHAMINE 60 MG/2 ML VIAL IM ONE (13:28)
[2020-08-09] MEDS ORDERED: KETOROLAC TROMETHAMINE 30 MG/1 ML VIAL ONE (13:34)
== END 2020-08-09 13:40 | disposition home or self-care (01) ==
LOC: JERFT 11:05
PROC: 3E0233Z Introduction of Anti-inflammatory into Muscle, Percutaneous Approach (ICD-10-PCS; principal; 2020-08-09)
DX: M25.561 Pain in right knee (principal)
CPT/HCPCS: 73562-TC-RT-FY; 99285-25

== ENCOUNTER 2022-01-17 04:19 | Day surgery (SDC) | payer OTHER ==
[2022-01-16 14:20] VITALS: BMI 34.2
[2022-01-17] MEDS ORDERED: BUPIVACAINE HCL/PF 0.5% (5MG/ML) 10 ML VIAL ONE ×2 (11:01→11:03)
[2022-01-17] MEDS ORDERED: oxyCODONE HCL 5 MG TABLET PO PRN (11:44)
[2022-01-17] MEDS ORDERED: ONDANSETRON 4 MG/2 ML VIAL IVPUSH PRN (11:44)
[2022-01-17] MEDS ORDERED: LACTATED RINGERS SOLUTION 1,000 ML IV SCH (11:45)
[2022-01-17] MEDS ORDERED: LIDOCAINE HCL/PF 2% SDV 5ML VIAL ONE (12:06)
[2022-01-17] MEDS ORDERED: FENTANYL CITRATE/PF 50 MCG/ML VIAL ONE ×6 (12:06→14:08)
[2022-01-17] MEDS ORDERED: DEXAMETHASONE SOD PHOSPHATE 4 MG/1 ML VIAL ONE ×2 (12:06→12:41)
[2022-01-17] MEDS ORDERED: MIDAZOLAM HCL 2 MG/2 ML SINGLE DOSE VIAL ONE (12:07)
[2022-01-17] MEDS ORDERED: PROPOFOL 20 ML ONE ×2 (12:07→13:03)
[2022-01-17] MEDS ORDERED: SCOPOLAMINE HYDROBROMIDE 1 PATCH PATCH.TD72 ONE (12:28)
[2022-01-17] MEDS ORDERED: ONDANSETRON 4 MG/2 ML VIAL ONE ×2 (12:41→13:56)
[2022-01-17] MEDS ORDERED: ceFAZolin SODIUM 1 GM VIAL ONE (12:44)
[2022-01-17] MEDS ORDERED: ceFAZolin SODIUM 1 GM VIAL IVPB ONE (12:44)
[2022-01-17] MEDS ORDERED: LIDOCAINE 1%/EPI 1:100000 (20 ML MULTI DOSE VIAL) IJ ONE (12:47)
[2022-01-17] MEDS ORDERED: BUPIVACAINE HCL/PF 0.5% (5MG/ML) 10 ML VIAL IJ ONE ×3 (13:00→13:11)
[2022-01-17] MEDS: FENTANYL CITRATE/PF 50 MCG/ML VIAL IVPUSH PRN ×5 (13:29→14:12)
[2022-01-17] MEDS ORDERED: ACETAMINOPHEN INJECTION 100 ML IVPB ONE (13:30)
[2022-01-17] MEDS ORDERED: ACETAMINOPHEN 1000 MG/100 ML BAG IVPB ONE (14:02)
[2022-01-17] MEDS ORDERED: oxyCODONE HCL 5 MG TABLET PO ONE (14:02)
[2022-01-17 15:18] VITALS: RESP 20; TEMP 98
[2022-01-17 16:30] VITALS: BP 132/67; PULSE 69
== END 2022-01-17 16:10 | disposition home or self-care (01) ==
LOC: JASU-SURG 04:19
PROVIDERS: ATTEND Orthopaedic Surgery
PROC: 0SBC4ZZ Excision of Right Knee Joint, Percutaneous Endoscopic Approach (ICD-10-PCS; 2022-01-17)
PROC: 0SBC4ZZ Excision of Right Knee Joint, Percutaneous Endoscopic Approach (ICD-10-PCS; principal; 2022-01-17 10:45)
DX: M23.91 Unspecified internal derangement of right knee (principal)
CPT/HCPCS: 94760

== ENCOUNTER 2022-01-25 09:44 | Emergency (ER) | payer OTHER ==
[2022-01-25 09:56] VITALS: BP 102/65; PULSE 86; RESP 18; TEMP 99.4; BMI 33.6
[2022-01-25 12:41] LABS: BASO % 0.7 % (0-2.0); EOS % 1.1 % (0-4.5); LYMPH % 29.2 % (8-40); MCH 27.4 pg (25.7-33.7); MCHC 31.1 g/dl (32.0-36.0); MEAN CELL VOLUME 88.2 fl (80-96); MEAN PLT VOLUME 9.4 fl (7.5-11.1); MONO % 8.9 % (3.8-10.2); NEUT % 60.1 % (42.8-82.8); PLATELET COUNT 289 10^3/uL (134-434); RBC 4.76 M/mm3 (3.60-5.2); WHITE BLOOD COUNT 7.2 K/mm3 (4.0-10.0)
[2022-01-25 12:57] LABS: CALCIUM 10.8 mg/dL (8.5-10.1)
[2022-01-25 12:59] LABS: BLOOD UREA NITROGEN 17.6 mg/dL (7-18)
[2022-01-25 13:01] LABS: CREATININE 0.9 mg/dL (0.55-1.3)
[2022-01-25 13:03] LABS: BILIRUBIN,TOTAL 0.4 mg/dL (0.2-1); TOT PROT 7.6 g/dl (6.4-8.2)
[2022-01-25] MEDS ORDERED: ACETAMINOPHEN 325 MG TABLET (FP) PO ONE (15:09)
[2022-01-25] MEDS ORDERED: ACETAMINOPHEN 325 MG TABLET (FP) ONE (15:16)
== END 2022-01-25 15:47 | disposition home or self-care (01) ==
LOC: JER 09:44
DX: R06.00 Dyspnea, unspecified (principal)
CPT/HCPCS: 36415; 71275-TC; 80053; 84484; 85025; 85379; 93005; 93010; 99285-25

== ENCOUNTER → 2022-03-01 | Day surgery (SDC) | payer OTHER | END | disposition home or self-care (01) | LOC: JRADUS-SUR 08:21 | PROVIDERS: ATTEND Family Medicine | PROC: 0G9K3ZX Drainage of Thyroid Gland, Percutaneous Approach, Diagnostic (ICD-10-PCS; principal; 2022-03-01) | DX: E04.1 Nontoxic single thyroid nodule (principal) | CPT/HCPCS: 10005; 76942; 88173; 88305-TC ==

== ENCOUNTER 2022-04-21 12:10 | Emergency (ER) | payer OTHER ==
[2022-04-21 12:16] VITALS: BMI 34.7
[2022-04-21] MEDS ORDERED: ACETAMINOPHEN 1000 MG/100 ML BAG IVPB ONE (14:09)
[2022-04-21] MEDS ORDERED: LACTATED RINGERS SOLUTION 1000 ML INFUS.BAG IV ONE (14:09)
[2022-04-21] MEDS ORDERED: ACETAMINOPHEN INJECTION 100 ML IVPB ONE (14:23)
[2022-04-21 14:56] LABS: BASO % 0.6 % (0-2.0); EOS % 0.6 % (0-4.5); HEMATOCRIT 40.7 % (32.4-45.2); HEMOGLOBIN 12.8 GM/dL (10.7-15.3); LYMPH % 21.4 % (8-40); MCH 27.5 pg (25.7-33.7); MCHC 31.5 g/dl (32.0-36.0); MEAN CELL VOLUME 87.5 fl (80-96); MEAN PLT VOLUME 9.9 fl (7.5-11.1); NEUT % 70.4 % (42.8-82.8); PLATELET COUNT 266 10^3/uL (134-434); RBC 4.65 M/mm3 (3.60-5.2); RDW 15.4 % (11.6-15.6)
[2022-04-21 14:57] LABS: PH,URINE 5.5 (5.0-8.0); URINE APPEARANCE CLEAR; URINE BILIRUBIN NEGATIVE (NEGATIVE); URINE COLOR YELLOW; URINE GLUCOSE (UA) NEGATIVE (NEGATIVE); URINE KETONE TRACE (NEGATIVE); URINE LEUK ESTERASE NEGATIVE (NEGATIVE); URINE NITRITE NEGATIVE (NEGATIVE); URINE PROTEIN TRACE (NEGATIVE); URINE UROBILINOGEN 0.2 mg/dL (0.2-1.0)
[2022-04-21 15:00] LABS: ALBUMIN 3.9 g/dl (3.4-5.0); BLOOD UREA NITROGEN 18.3 mg/dL (7-18); CALCIUM 10.2 mg/dL (8.5-10.1)
[2022-04-21 15:04] LABS: CREATININE 1.1 mg/dL (0.55-1.3)
[2022-04-21 15:05] LABS: BILIRUBIN,TOTAL 0.6 mg/dL (0.2-1); TOT PROT 7.7 g/dl (6.4-8.2)
[2022-04-21] MEDS ORDERED: ACETAMINOPHEN 325 MG TABLET (FP) ONE (18:16)
[2022-04-21] MEDS ORDERED: DOCUSATE SODIUM 100 MG CAPSULE (FP) PO ONE (18:17)
[2022-04-21 18:33] VITALS: BP 128/76; PULSE 88; RESP 18; TEMP 97.9
[2022-04-22] MEDS ORDERED: DOCUSATE SODIUM 100 MG CAPSULE (FP) PO SCH (10:00)
== END 2022-04-21 18:20 | disposition home or self-care (01) ==
LOC: JER 12:10
PROC: 3E0333Z Introduction of Anti-inflammatory into Peripheral Vein, Percutaneous Approach (ICD-10-PCS; principal; 2022-04-21)
DX: K62.5 Hemorrhage of anus and rectum (principal)
CPT/HCPCS: 36415; 74177-TC; 80053; 81003; 82272; 85025; 87086; 93005; 93010; 99285-25; Q9967

== ENCOUNTER 2022-07-22 10:51 | Observation (INO) | payer OTHER ==
[2022-07-22 10:58] VITALS: BMI 31.3
[2022-07-22] MEDS ORDERED: morphine CARPU-JECT 4 MG/1 ML DISP.SYRIN IVPUSH ONE ×2 (11:31→20:09)
[2022-07-22 13:03] LABS: BASO % 0.6 % (0-2.0); EOS % 1.8 % (0-4.5); HEMATOCRIT 36.4 % (32.4-45.2); HEMOGLOBIN 11.6 GM/dL (10.7-15.3); LYMPH % 17.8 % (8-40); MCH 27.6 pg (25.7-33.7); MCHC 31.9 g/dl (32.0-36.0); MEAN CELL VOLUME 86.7 fl (80-96); MEAN PLT VOLUME 9.6 fl (7.5-11.1); MONO % 9.3 % (3.8-10.2); NEUT % 70.5 % (42.8-82.8); PLATELET COUNT 251 10^3/uL (134-434); RDW 15.5 % (11.6-15.6); WHITE BLOOD COUNT 7.7 K/mm3 (4.0-10.0)
[2022-07-22] MEDS ORDERED: morphine CARPU-JECT 2 MG/1 ML DISP.SYRIN IVPUSH ONE ×2 (13:03→15:19)
[2022-07-22 13:13] LABS: INR 1.23 (0.83-1.09); PROTHROMBIN TIME (PATIENT) 14.2 SEC (9.7-13.0)
[2022-07-22 13:16] LABS: ACTIVATED PTT 28.8 SECONDS (25.2-36.5)
[2022-07-22 13:23] LABS: POTASSIUM 4.3 mmol/L (3.5-5.1)
[2022-07-22 13:25] LABS: ALBUMIN 3.9 g/dl (3.4-5.0); BLOOD UREA NITROGEN 13.7 mg/dL (7-18); CALCIUM 10.3 mg/dL (8.5-10.1); MAGNESIUM 2.1 mg/dL (1.8-2.4)
[2022-07-22 13:29] LABS: CREATININE 0.9 mg/dL (0.55-1.3)
[2022-07-22 13:30] LABS: BILIRUBIN,TOTAL 0.5 mg/dL (0.2-1); TOT PROT 7.6 g/dl (6.4-8.2)
[2022-07-22] MEDS ORDERED: SODIUM CHLORIDE 0.9% 500 ML INFUS.BAG IV ONE (14:53)
[2022-07-22 18:47] LABS: EPI CELLS 10 /uL (0-25.1); HYALINE CASTS 1 /uL (0-3.1); PH,URINE 5.5 (5.0-8.0); URINE APPEARANCE CLEAR; URINE BACTERIA 444 /uL (0-1359); URINE BILIRUBIN NEGATIVE (NEGATIVE); URINE COLOR YELLOW; URINE GLUCOSE (UA) NEGATIVE (NEGATIVE); URINE KETONE 1+ (NEGATIVE); URINE LEUK ESTERASE 2+ (NEGATIVE); URINE NITRITE NEGATIVE (NEGATIVE); URINE PROTEIN TRACE (NEGATIVE); URINE RBC 165 /uL (0-23.9); URINE UROBILINOGEN 0.2 mg/dL (0.2-1.0); URINE WBC 210 /uL (0-25.8)
[2022-07-22] MEDS ORDERED: ONDANSETRON 4 MG/2 ML VIAL IVPUSH ONE (20:09)
[2022-07-22] MEDS ORDERED: ONDANSETRON 4 MG/2 ML VIAL ONE (20:34)
[2022-07-22] MEDS ORDERED: morphine SULFATE 4 MG/ML VIAL ONE (20:34)
[2022-07-22] MEDS ORDERED: CEFTRIAXONE 1,000 MG in DEXTROSE 5%-WATER - 50 ML IVPB ONE (20:44)
[2022-07-22] MEDS ORDERED: CEFTRIAXONE 1 GM/50 ML BAG ONE (21:03)
[2022-07-23] MEDS: ACETAMINOPHEN 1000 MG/100 ML BAG IVPB PRN ×3 (00:11→12:45)
[2022-07-23] MEDS: DEXTROSE 5%-0.45% SALINE 1,000 ML IV SCH ×2 (00:40→16:38)
[2022-07-23] MEDS: SIMETHICONE 80 MG TAB.CHEW (FP) PO PRN (06:29)
[2022-07-23] MEDS: NEBIVOLOL 5 MG TABLET (FP) PO SCH (10:25)
[2022-07-23] MEDS: CEFTRIAXONE 1 GM in DEXTROSE 5%-WATER - 50 ML IVPB SCH (10:26)
[2022-07-23] MEDS: PANTOPRAZOLE SODIUM 40 MG VIAL IVPUSH SCH (10:26)
[2022-07-23 11:01] LABS: BASO % 0.5 % (0-2.0); EOS % 2.9 % (0-4.5); HEMATOCRIT 35.9 % (32.4-45.2); HEMOGLOBIN 11.5 GM/dL (10.7-15.3); LYMPH % 20.8 % (8-40); MCH 28.2 pg (25.7-33.7); MCHC 32.2 g/dl (32.0-36.0); MEAN CELL VOLUME 87.5 fl (80-96); MEAN PLT VOLUME 10.1 fl (7.5-11.1); MONO % 10.2 % (3.8-10.2); NEUT % 65.6 % (42.8-82.8); PLATELET COUNT 221 10^3/uL (134-434); RDW 15.4 % (11.6-15.6); WHITE BLOOD COUNT 6.4 K/mm3 (4.0-10.0)
[2022-07-23 11:10] LABS: POTASSIUM 4.2 mmol/L (3.5-5.1)
[2022-07-23 11:24] LABS: CALCIUM 9.6 mg/dL (8.5-10.1)
[2022-07-23 11:25] LABS: BLOOD UREA NITROGEN 11.4 mg/dL (7-18)
[2022-07-23 11:29] LABS: CREATININE 0.8 mg/dL (0.55-1.3)
[2022-07-23] MEDS: POLYETHYLENE GLYCOL (HEALTHYLAX) 3350 17 GM PACKET PO SCH (21:23)
[2022-07-23] MEDS: LIDOCAINE HCL 5% TOP OINTMENT 50 GM TUBE TP SCH (21:23)
[2022-07-23] MEDS: ACETAMINOPHEN 500 MG TABLET (FP) PO PRN (21:40)
[2022-07-23] MEDS: VERAPAMIL HCL 180 MG E.R. TABLET PO SCH (21:44)
[2022-07-24] MEDS: DEXTROSE 5%-0.45% SALINE 1,000 ML IV SCH (00:43)
[2022-07-24] MEDS: ACETAMINOPHEN 500 MG TABLET (FP) PO PRN ×4 (05:50→23:55)
[2022-07-24] MEDS: NEBIVOLOL 5 MG TABLET (FP) PO SCH (09:49)
[2022-07-24] MEDS: POLYETHYLENE GLYCOL (HEALTHYLAX) 3350 17 GM PACKET PO SCH ×4 (09:49→21:58)
[2022-07-24] MEDS: SIMETHICONE 80 MG TAB.CHEW (FP) PO PRN ×2 (09:49→14:27)
[2022-07-24] MEDS: PANTOPRAZOLE SODIUM 40 MG VIAL IVPUSH SCH (10:53)
[2022-07-24] MEDS: CEFTRIAXONE 1 GM in DEXTROSE 5%-WATER - 50 ML IVPB SCH (10:53)
[2022-07-24] MEDS: LIDOCAINE HCL 5% TOP OINTMENT 50 GM TUBE TP SCH ×2 (10:54→21:58)
[2022-07-24] MEDS: VERAPAMIL HCL 180 MG E.R. TABLET PO SCH (21:57)
[2022-07-25] MEDS: POLYETHYLENE GLYCOL (HEALTHYLAX) 3350 17 GM PACKET PO SCH ×2 (05:20→15:04)
[2022-07-25 06:26] VITALS: RESP 18
[2022-07-25] MEDS: ACETAMINOPHEN 500 MG TABLET (FP) PO PRN (06:58)
[2022-07-25] MEDS: CEFTRIAXONE 1 GM in DEXTROSE 5%-WATER - 50 ML IVPB SCH (10:02)
[2022-07-25] MEDS: PANTOPRAZOLE SODIUM 40 MG VIAL IVPUSH SCH (11:36)
[2022-07-25] MEDS: LIDOCAINE HCL 5% TOP OINTMENT 50 GM TUBE TP SCH (11:41)
[2022-07-25] MEDS: NEBIVOLOL 5 MG TABLET (FP) PO SCH (11:41)
[2022-07-25 15:59] VITALS: BP 132/89; PULSE 87; TEMP 98.6
== END 2022-07-25 15:56 | disposition home or self-care (01) ==
LOC: JER 10:51 → JERBED 20:52 → J5S 21:39
PROVIDERS: ADMIT Internal Medicine; ATTEND Family Medicine
PROC: 3E03329 Introduction of Other Anti-infective into Peripheral Vein, Percutaneous Approach (ICD-10-PCS; principal; 2022-07-22)
PROC: 3E0333Z Introduction of Anti-inflammatory into Peripheral Vein, Percutaneous Approach (ICD-10-PCS; 2022-07-22)
PROC: 3E033NZ Introduction of Analgesics, Hypnotics, Sedatives into Peripheral Vein, Percutaneous Approach (ICD-10-PCS; 2022-07-22)
PROC: 3E0337Z Introduction of Electrolytic and Water Balance Substance into Peripheral Vein, Percutaneous Approach (ICD-10-PCS; 2022-07-22)
DX: N39.0 Urinary tract infection, site not specified (principal); R31.9 Hematuria, unspecified; K62.89 Other specified diseases of anus and rectum; K60.2 Anal fissure, unspecified; K59.00 Constipation, unspecified; K64.8 Other hemorrhoids; G89.29 Other chronic pain; I10 Essential (primary) hypertension; I48.91 Unspecified atrial fibrillation; Z85.118 Personal history of other malignant neoplasm of bronchus and lung; Z85.3 Personal history of malignant neoplasm of breast; Z88.2 Allergy status to sulfonamides; R10.13 Epigastric pain; E78.5 Hyperlipidemia, unspecified
CPT/HCPCS: 0241U-QW; 36415; 74177-TC; 80048; 80053; 81003; 83735; 85025; 85610; 85730; 86850; 86900; 86901; 87086; 87186; 96365; 96375; 96376; 99285-25; G0378; Q9967

== ENCOUNTER 2022-08-28 01:23 | Emergency (ER) | payer OTHER ==
[2022-08-28 01:32] VITALS: BP 137/95; PULSE 89; RESP 18; TEMP 97.8; BMI 33.7
[2022-08-28] MEDS ORDERED: ACETAMINOPHEN 1000 MG/100 ML BAG IVPB ONE (03:15)
[2022-08-28] MEDS ORDERED: morphine SULFATE 4 MG/ML VIAL IVPUSH ONE (03:18)
[2022-08-28] MEDS ORDERED: morphine SULFATE 4 MG/ML VIAL ONE (03:20)
[2022-08-28 04:12] LABS: BASO % 0.6 % (0-2.0); EOS % 1.8 % (0-4.5); HEMATOCRIT 41.3 % (32.4-45.2); HEMOGLOBIN 13.5 GM/dL (10.7-15.3); LYMPH % 26.5 % (8-40); MCH 28.2 pg (25.7-33.7); MCHC 32.6 g/dl (32.0-36.0); MEAN CELL VOLUME 86.7 fl (80-96); MEAN PLT VOLUME 10.2 fl (7.5-11.1); MONO % 7.6 % (3.8-10.2); NEUT % 63.5 % (42.8-82.8); PLATELET COUNT 287 10^3/uL (134-434); RBC 4.77 M/mm3 (3.60-5.2); RDW 15.9 % (11.6-15.6); WHITE BLOOD COUNT 7.6 K/mm3 (4.0-10.0)
[2022-08-28 04:28] LABS: CALCIUM 10.7 mg/dL (8.5-10.1)
[2022-08-28 04:29] LABS: ALBUMIN 4.6 g/dl (3.4-5.0); BLOOD UREA NITROGEN 14.8 mg/dL (7-18)
[2022-08-28 04:34] LABS: BILIRUBIN,TOTAL 0.4 mg/dL (0.2-1); TOT PROT 8.2 g/dl (6.4-8.2)
[2022-08-28] MEDS ORDERED: HYDROCORTISONE 2.5% TOPICAL CREAM 30 GM TUBE PR ONE (05:17)
[2022-08-28] MEDS ORDERED: LIDOCAINE HCL 2% JELLY 10 ML CARTRIDGE PR ONE (05:17)
[2022-08-28] MEDS ORDERED: LIDOCAINE HCL 2% JELLY 6 ML TP ONE (05:36)
== END 2022-08-28 07:13 | disposition home or self-care (01) ==
LOC: JER 01:23
PROC: 3E033NZ Introduction of Analgesics, Hypnotics, Sedatives into Peripheral Vein, Percutaneous Approach (ICD-10-PCS; principal; 2022-08-28)
DX: K62.89 Other specified diseases of anus and rectum (principal); K52.1 Toxic gastroenteritis and colitis
CPT/HCPCS: 36415; 72193-TC; 80053; 85025; 99285-25; Q9967

== ENCOUNTER 2022-08-31 06:57 | Emergency (ER) | payer OTHER ==
[2022-08-31 07:04] VITALS: BP 148/96; PULSE 94; RESP 20; TEMP 97.8; BMI 32.3
[2022-08-31] MEDS ORDERED: ACETAMINOPHEN 500 MG TABLET (FP) PO ONE (07:54)
[2022-08-31] MEDS ORDERED: ACETAMINOPHEN 500 MG TABLET (FP) ONE (08:06)
== END 2022-08-31 09:51 | disposition home or self-care (01) ==
LOC: JER 06:57
DX: K62.89 Other specified diseases of anus and rectum (principal); R15.9 Full incontinence of feces
CPT/HCPCS: 99283-25

== ENCOUNTER 2023-09-28 15:45 | Emergency (ER) | payer OTHER ==
[2023-09-28 16:11] VITALS: BP 126/89; PULSE 76; RESP 18; TEMP 98.6; BMI 34.7
[2023-09-28] MEDS ORDERED: ACETAMINOPHEN 650 MG/20.3 ML ORAL SOLUTION (CUPS) PO ONE (17:50)
[2023-09-28] MEDS ORDERED: ACETAMINOPHEN 325 MG TABLET (FP) ONE (17:53)
== END 2023-09-28 19:01 | disposition home or self-care (01) ==
LOC: JER 15:45
DX: M25.561 Pain in right knee (principal); M25.562 Pain in left knee; M79.89 Other specified soft tissue disorders
CPT/HCPCS: 99283-25